=== PATIENT | male | born 1955 | race Caucasian/White ===

== ENCOUNTER 2025-04-29 10:13 | Emergency (ER) | payer MEDICARE, SELFPAY ==
--- NOTE | ~2025-04-29 | XR_ITS ---
Clinical Indication: Cough PA and lateral views of the chest: Comparison: 10/03/2018 Findings: There is patchy airspace disease extensively involving the right upper lobe, and probable m ild haziness at the bilateral lung bases.. There is fullness the right perihilar region. Cardiac silh ouette unremarkable otherwise. Bones and soft tissues are unremarkable. Impression: Findings suspicious for multifocal pneumonia, worst in the right upper lobe. Mild fullness the right hilar region could reflect lymphadenopathy or possibly mass. Contrast-enhance d chest CT should be strongly considered to further evaluate. Reviewed, dictated and finalized at location . Impression: Findings suspicious for multifocal pneumonia, worst in the right upper lobe. Mild fullness the right hilar region could reflect lymphadenopathy or possibly mass. Contrast-enhanced chest CT should be strongly considered to further evalu ate.
[2025-04-29 10:22] VITALS: BP 193/130; PULSE 101; RESP 22; TEMP 36.8; O2SAT 93
--- NOTE | 2025-04-29 10:23 | ED_ITS ---
HPI - URI/Sore Throat General Chief Complaint: Upper Respiratory Infection Stated Complaint: Trouble Brething/Cough Time Seen by Provider: 04/29/25 10:20 Source: patient and RN notes reviewed Mode of arrival: ambulatory Limitations: no limitations History of Present Illness HPI Narrative: 70-year-old male presents with concern of for shortness of breath for 1 year that is increasingly worsening. He reports his stamina is less than it used to be before he gets short of breath. Reports the cough since December. He reports a history of hypertension, but he does not take medication for it. MD elicited complaint: cough and other (Shortness of breath) Related Data Home Medications ?Medication ?Instructions ?Recorded ?Confirmed ?Last Taken ?Type No Home Medications 04/29/25 04/29/25 Unknown History Allergies Allergy/AdvReac Type Severity Reaction Status Date / Time No Known Allergies Allergy Verified 04/29/25 10:25 Review of Systems Review of Systems: CONSTITUTIONAL: Denies malaise, chills, sweats, or fever. EYES: Denies visual changes, redness, or discharge. ENT: Denies rhinorrhea, congestion, sinus pain, otalgia and sore throat. CARDIOVASCULAR: Denies chest pain, palpitations, or edema. RESPIRATORY: Reports cough, dyspnea. GASTROINTESTINAL: Denies abdominal pain, nausea, vomiting, diarrhea SKIN: Denies rash or itching. MUSCULOSKELETAL: Denies myalgia. NEUROLOGIC: Denies headache. All systems reviewed & are unremarkable except as noted in HPI and below PMFSH Family History Family History (Updated 10/02/18 @ 08:36 by DOCTOR UNKNOWN) Father Malignant neoplasm of prostate, Onset Age: 73 Social History Social History Smoking status: Former smoker Smoking end date: 11/20/75 Alcohol intake: current Comments At time of signature, agree with nursing past medical, surgical, social and family history. There is no relevant family history pertinent to the presenting complaint Exam Narrative: GENERAL: Well-appearing, well-nourished, and in no acute distress. HEAD: Normocephalic, atraumatic. EYES: PERRLA, sclera clear, and EOMI. ENT: Nares clear. Mucous membranes moist. NECK: Supple. No jugular venous distension. Carotids were easily palpable bilaterally. CHEST: No respiratory distress. Mild crackles in the bases, otherwise Clear to auscultation. No bony deformities, no asymmetry. Speaks in full sentences. HEART: Regular rate and rhythm. No murmur heard. Normal peripheral pulses. EXTREMITIES: Normal range of motion. No edema. Normal strength and sensation. SKIN: Warm, dry, no visible rash. NEURO: Alert and oriented x3. No focal deficits. Cranial nerves II through XII grossly intact PSYCH: Normal mood and affect Course Course Emergency Course: Patient is aware of diagnosis, understands and agrees to treatment plan. Anticipatory guidance given. Patient agrees to follow-up as directed and is aware of reasons to seek care at the emergency department. Portions of this record may have been created with voice recognition software Level of Care: [facility] Visit Vital Signs Vital signs: Reviewed. Transfer Transfered to: [place] Transportation: Other (private vehicle) Transfer rationale: Hypertension, abnormal EKG, shortness of breath, multifocal pneumonia Accepting physician: Minerva MDM - URI/Sore Throat MDM Narrative Medical decision making narrative: I evaluated this patient in the [facility]. History is obtained from patient who is an independent historian and physical exam was performed.? Available medical records were reviewed. ? Patient is non-toxic appearing and is in no distress. ? Differential diagnosis and treatment plan were discussed with the patient. Patient agrees with discussion and after shared medical decision making agrees w ith plan of care. All questions were answered to the patient's satisfaction. Patient is appropriate for outpatient treatment and follow-up. Lab Data Attestation: I reviewed the patient's lab results. Imaging Data My impression: Images reviewed, interpreted by radiologist, agree, see report. Radiologist's impression: Clinical Indication: Cough PA and lateral views of the chest: Comparison: 10/03/2018 Findings: There is patchy airspace disease extensively involving the right upper lobe, and probable mild haziness at the bilateral lung bases.. There is fullness the right perihilar region. Cardiac silhouette unremarkable otherwise. Bones and soft tissues are unremarkable. Impression: Findings suspicious for multifocal pneumonia, worst in the right upper lobe. Mild fullness the right hilar region could reflect lymphadenopathy or possibly mass. Contrast-enhanced chest CT should be strongly considered to further evaluate. ECG Data EKG #1: ECG completion date: 04/29/25 ECG completion time: 10:38 Interpretation: Rate 93, [place] interval 192, QRS duration 128, QT 491, QTC 542, possible left atrial enlargement, possible right ventricular conduction delay, possible left lateral [place], probably old EKG Interpretation: normal rate and sinus rhythm Critical Care Time Critical Care Time Critical Care Time: No Discharge Plan Discharge Clinical Impression: Multifocal pneumonia Patient Disposition: Acute Care Hospital Condition: Stable Patient Language: Turkmen Prescriptions: No Action No Home Medications Follow-up/Referrals: Jess Roque MD [Primary Care Provider] - Time of Disposition: 11:16
--- NOTE | 2025-04-29 10:28 | ECG_ITS ---
Test Date: 2025-04-29 12:12:24 Measurements Intervals [place] Rate: 90 P: 12 LA: 192 QRS: 6 QRSD: 129 T: -4 QT: 402 QTc: 492 Interpretive Statements SINUS RHYTHM BORDERLINE AV CONDUCTION DELAY RIGHT BUNDLE BRANCH BLOCK LEFT VENTRICULAR HYPERTROPHY POSSIBLE HIGH LATERAL MYOCARDIAL INFARCTION , PROBABLY OLD BASELINE ARTIFACT- I, II, AVR, AVL ABNORMAL ECG No previous ECG available for comparison Electronically Signed On 04-29-2025 12:49:19 CDT by Arsh Lord D.O.
== END 2025-04-29 11:20 | disposition short-term general hospital (02) ==
PROVIDERS: Emergency Provider Nurse Practitioner; PCP Family Medicine
DX: J18.9 Pneumonia, unspecified organism (principal); Z87.891 Personal history of nicotine dependence; I10 Essential (primary) hypertension
CPT/HCPCS: 71046; 93005; 99213; G0463

== ENCOUNTER 2025-04-29 11:42 | Inpatient (IN) | payer MEDICARE, SELFPAY ==
[2025-04-29] VITALS (15 sets, daily range): BP systolic 163–216; BP diastolic 94–118; PULSE 83–98; RESP 16–28; TEMP 36.1–36.7; O2SAT 88–97; BMI 37.8
--- NOTE | ~2025-04-29 | CT_ITS ---
EXAMINATION: CT diagnostic chest w con DATE: 04/29/2025 14:20 INDICATION: Perihilar mass. multifocal PNA TECHNIQUE: Computed tomography (CT) of the chest was performed with 100 mL Omnipaque-350 intravenous contrast. Additional 3D reconstructions utilizing coronal maximum intensity projection (MIP) were per formed. Automated exposure control and iterative reconstruction technique were employed. The dose-sonia gth product was 746.63 mGy-cm. COMPARISON: None FINDINGS: Lower lung and peripheral predominant groundglass opacities and irregular septal line thickening with associated honeycombing consistent with usual interstitial pneumonia (UIP) pattern chronic interstit ial lung disease. No suspicious pulmonary nodules or masses. No pleural effusion. Heart size is raven l. No pericardial effusion. There is enlargement of the central pulmonary arteries consistent with pu lmonary arterial hypertension and which accounts for the increased prominence of the asya on prior ch est radiograph. Thoracic aorta is normal in caliber with no dissection. Mild likely reactive mediasti nal lymphadenopathy, the largest right paratracheal lymph node measuring 1.3 cm in maximal short axis diameter. No other pathologically enlarged thoracic lymphadenopathy. Visualized upper abdomen is unr emarkable. Severe lower cervical and mild to moderate lower thoracic predominant spondylosis. Chronic appearing mild likely physiologic anterior wedging at T12. IMPRESSION: 1. UIP pattern chronic interstitial lung disease. 2. Enlargement of the central pulmonary arteries likely related to pulmonary arterial hypertension an d which accounts for the increased prominence of the asya on the prior chest radiograph. 2. Mildly likely reactive mediastinal lymphadenopathy. Reviewed, dictated and finalized at location [facility]. IMPRESSION: 1. UIP pattern chronic interstitial lung disease. 2. Enlargement of the central pulmonary arteries likely related to pulmonary ar terial hypertension and which accounts for the increased prominence of the asya on the prior chest radiograph. 2. Mildly likely reactive mediastinal lymphadenopathy.
--- NOTE | 2025-04-29 12:04 | ECG_ITS ---
Test Date: 2025-04-29 15:26:46 Measurements Intervals [place] Rate: 84 P: 20 ND: 218 QRS: 15 QRSD: 119 T: 9 QT: 413 QTc: 491 Interpretive Statements SINUS RHYTHM WITH FIRST DEGREE AV BLOCK INCOMPLETE RIGHT BUNDLE BRANCH BLOCK DELAYED PRECORDIAL R/S TRANSITION LEFT VENTRICULAR HYPERTROPHY MINIMAL Q WAVES- HIGH LATERAL LEADS BORDERLINE T WAVE ABNORMALITY- ANT/INF LEADS BORDERLINE ECG Compared to ECG 04/29/2025 12:12:24 First degree AV block now present I Electronically Signed On 04-29-2025 16:12:19 CDT by Arsh Lord D.O.
[2025-04-29 12:28] LABS: Basophils Absolute Auto 0.1 K/mm3 (0.0-0.1); Basophils Percent Auto 0.5 % (0.2-1.2); Eosinophils Absolute Auto 0.3 K/mm3 (0-0.3); Eosinophils Percent Auto 2.6 % (0-4.4); Hematocrit 49.9 % (42.0-52.0); Hemoglobin 16.8 g/dL (14.0-18.0); Immature Granulocyte Absolute 0.05 K/mm3 (0.00-0.031); Immature Granulocyte Percent A 0.5 % (0-0.5); Lymphocytes Absolute Auto 1.72 K/mm3 (0.9-3.2); Lymphocytes Percent Auto 17.3 % (18.3-44.2); Mean Corpuscular HGB Conc 33.7 g/dl (32-36); Mean Corpuscular Hemoglobin 31.2 pg (26-34); Mean Corpuscular Volume 92.6 fl (80-100); Mean Platelet Volume 10.2 fl (7.4-10.4); Monocytes Absolute Auto 0.9 K/mm3 (0.1-0.6); Monocytes Percent Auto 8.5 % (2.6-8.5); Neutrophils Percent Auto 70.6 % (45.5-73.1); Platelet Count Result 210 k/mm3 (150-375); Red Blood Count 5.39 M/mm3 (4.6-6.20); Red Cell Distribution Width 13.3 % (11.5-14.5)
[2025-04-29 12:29] LABS: Fractional Inspired Oxygen 28 %; HCO3 VBG 21.5 mEq/l (24.0-30.0); PCO2 VBG 32.8 mmHg (42.0-48.0); PO2 VBG 82.2 mmHg (35.0-45.0)
[2025-04-29 12:33] LABS: pH VBG 7.434 (7.300-7.400)
[2025-04-29 12:34] LABS: Device NASAL CANNULA
[2025-04-29 12:38] LABS: INR 1.1; Prothrombin Time 13.8 Seconds (11.1-14.7)
[2025-04-29 12:48] LABS: D Dimer 0.38 ug/mL (<0.48)
[2025-04-29 12:55] LABS: Troponin I < 0.012 ng/mL (0.000-0.034)
--- OUTSIDE RECORDS SUMMARY | 2025-04-29 12:57 | XMS_ITS | Referral Summary ---
Author Organization [facility] [place] [address] Address [address] [place] [address] Care Team Providers Care Electric Locomotive Firer/Fireman Name Role Phone Edgar Ward MD Primary Care Provider [phone]- [phone] Allergies No known active allergies Social History Tobacco Use Types Packs/Day Years Used Date Smoking Tobacco: Never Assessed Personal Safety Answer Date Recorded Getting School Help Needed Not on file 02/03 Sex and Gender Information Value Date Recorded Sex Assigned at Not on file Legal Sex Male 2:39 PM CDT Gender Identity Not on file Sexual Orientation Not on file Last Filed Vital Signs Vital Sign Reading Time Taken Comments Blood Pressure - - Pulse - - Temperature - - Respiratory Rate - - Oxygen Saturation - - Inhaled Oxygen Concentration - - Weight 140.6 kg (310 lb) 05/17/2018 11:33 AM CDT Height 190.5 cm (6' 3) 05/17/2018 11:33 AM CDT Body Mass Index 38.75 05/17/2018 11:33 AM CDT Plan of Treatment Not on file Insurance [facility] Care Teams Electric Locomotive Firer/Fireman Relationship Specialty Start Date End Date Edgar Ward MD [address] [place] [address] PCP - General Family Medicine 05/03/18
--- OUTSIDE RECORDS SUMMARY | 2025-04-29 12:57 | XMS_ITS | Clinical Summary ---
Author Organization [facility] [place] [address] Address [address] [place] [address] Care Team Providers Care Supervisor Color Making Name Role Phone Edgar Ward MD Primary Care Provider [phone]- [phone] Allergies No known active allergies Social History [...] Plan of Treatment Not on file Insurance [employer] [facility] Care Teams Supervisor Color Making Relationship Specialty Start Date End Date Edgar Ward MD [address] [place] [address] PCP - General Family Medicine 05/03/18
[2025-04-29 13:05] LABS: Influenza A QL RT-PCR Negative (Negative); Influenza B QL RT-PCR Negative (Negative); RSV RNA, RT-PCR Negative (Negative); SARS-CoV-2 RNA PCR Negative (Negative)
--- NOTE | 2025-04-29 13:07 | ED_ITS ---
HPI - General Adult General Chief complaint: Shortness of Breath/Dyspnea Stated complaint: sob Time Seen by Provider: 04/29/25 11:53 History of Present Illness HPI narrative: This is a 70-year-old male with history hypertension not medications presenting for progressive dyspnea. Patient's 2 weeks he has finding it hard 100 breathe. He denies fevers chills productive cough, nausea vomiting diarrhea or lower extremity edema. He has had orthopnea. Patient has not seen primary care physician 6 years she is post be on medication hypertension but does not currently take any. Hew as seen in urgent care this morning for to the ED after a saw possible pneumonia on his chest x-ray Related Data Home Medications ?Medication ?Instructions ?Recorded ?Confirmed ?Last Taken ?Type No Home Medications 04/29/25 04/29/25 Unknown History Allergies Allergy/AdvReac Type Severity Reaction Status Date / Time No Known Allergies Allergy Verified 04/29/25 10:25 [facility] Family History Family History Father Malignant neoplasm of prostate, Onset Age: 73 Social History Social History Smoking status: Former smoker Smoking end date: 11/20/75 Alcohol intake: current Exam 2 Narrative: APPEARANCE: No apparent distress. Head: atraumatic. EYES: EOMI, NOSE: Atraumatic NECK: Trachea midline RESPIRATORY: Hypoxic on room air, CARDIOVASCULAR: RRR, no peripheral edema ABDOMINAL: Non-distended soft nontender MUSCULOSKELETAl: No obvious deformities NEURO: Alert. Moving 4/4 extremities SKIN:: Warm, dry. Normal color PSYCHIATRIC: Normal affect Course Vital Signs Vital signs: Vital Signs Temperature 97.4 F L 04/29/25 11:48 Pulse Rate 98 04/29/25 11:48 Respiratory Rate 24 H 04/29/25 11:48 Blood Pressure 216/118 H 04/29/25 11:48 Pulse Oximetry 88 L 04/29/25 11:48 Oxygen Delivery Room Air 04/29/25 11:48 Temperature 97.4 F L 04/29/25 11:48 Pulse Rate 84 04/29/25 15:31 Respiratory Rate 18 04/29/25 15:31 Blood Pressure 165/106 H 04/29/25 15:31 Pulse Oximetry 97 04/29/25 15:31 Oxygen Delivery Nasal Cannula 04/29/25 11:53 Oxygen Flow Rate 2 04/29/25 11:53 Medical Decision Making MDM Narrative Medical decision making narrative: -Course: 70-year-old male presenting with progressive dyspnea. On arrival is hypertensive at 216/118. He is hypoxic at 8 on room air and placed on 2 L nasal cannula improved to 96%. Workup significant for a white blood cell count of 10. Hemoglobin normal. VBG within expected limits. Comp panel unremarkable. Initial troponin undetectable.. BMP within normal limits. D-dimer 0.038. Viral swabs negative. Chest x-ray showed multifocal pneumonia. CT diagnostic chest showed Usual interstitial pneumonia/chronic interstitial lung disease. and possibly pulmonary hypertension. No echocardiogram /right heart cath in our system. Patient be started on ceftriaxone and doxycycline. Given 20 mg of IV asix. Patient be admitted the hospital for hypoxic respiratory failure. -DDX includes but is not limited to: Pneumonia, congestive heart neoplasm, sepsis hypertensive urgency Independent EKG interpretation: Rhythm [sinus], Rate [84], [place] -[normal], [place] -[218], QRS [narrow], QTC [normal], T waves -[negative for concerning inversions], ST Segments - [Negative for concerning elevations] Final interpretations: Sinus rhythm first-degree block and intraventricular conduction delay. Vital Signs Vital Signs: Vital Signs Temperature 97.4 F L 04/29/25 11:48 Pulse Rate 98 04/29/25 11:48 Respiratory Rate 24 H 04/29/25 11:48 Blood Pressure 216/118 H 04/29/25 11:48 Pulse Oximetry 88 L 04/29/25 11:48 Oxygen Delivery Room Air 04/29/25 11:48 Temperature 97.4 F L 04/29/25 11:48 Pulse Rate 84 04/29/25 15:31 Respiratory Rate 18 04/29/25 15:31 Blood Pressure 165/106 H 04/29/25 15:31 Pulse Oximetry 97 04/29/25 15:31 Oxygen Delivery Nasal Cannula 04/29/25 11:53 Oxygen Flow Rate 2 04/29/25 11:53 Lab Data 04/29/25 12:22 04/29/25 12:22 Labs: Lab Results 04/29/25 04/29/25 04/29/25 Range/Units 12:20 12:22 14:50 WBC 10.0 (4.5-10.0) K/mm3 RBC 5.39 (4.6-6.20) M/mm3 Hgb 16.8 (14.0-18.0) g/dL Hct 49.9 (42.0-52.0) % MCV 92.6 (80-100) fl MCH 31.2 (26-34) pg MCHC 33.7 (32-36) g/dl RDW 13.3 (11.5-14.5) % Plt Count 210 (150-375) k/mm3 MPV 10.2 (7.4-10.4) fl Immature Gran % (Auto) 0.5 (0-0.5) % Neut % (Auto) 70.6 (45.5-73.1) % Lymph % (Auto) 17.3 L (18.3-44.2) % [place] % (Auto) 8.5 (2.6-8.5) % Eos % (Auto) 2.6 (0-4.4) % Baso % (Auto) 0.5 (0.2-1.2) % Lymph # (Auto) 1.72 (0.9-3.2) K/mm3 [place] # (Auto) 0.9 H (0.1-0.6) K/mm3 Eos # (Auto) 0.3 (0-0.3) K/mm3 Baso # (Auto) 0.1 (0.0-0.1) K/mm3 Abs Immat Gran (auto) 0.05 H (0.00-0.031) K/mm3 Absolute Neuts (auto) 7.0 H (1.3-6.7) K/mm3 Absolute Nucleated RBC 0.000 (0.0-0.012) K/mm3 Nucleated RBC % 0.0 (0.0-0.2) % PT 13.8 (11.1-14.7) Seconds INR 1.1 APTT 27.0 (22.3-36.8) Seconds D-Dimer 0.38 (<0.48) ug/mL Sodium 135 L (137-145) mmol/L Potassium 3.9 (3.4-5.0) mmol/L Chloride 106 (98-107) mmol/L Carbon Dioxide 17 L (22-30) mmol/L Anion Gap 12 (4-12) mmol/L BUN 21 H (9-20) mg/dL Creatinine 0.86 (0.7-1.3) mg/dL Estim Creat Clear Calc 103 ml/min Estimated GFR > 60 (59 - ) Glucose 111 H (65-110) mg/dL Calcium 9.3 (8.4-10.2) mg/dL Phosphorus 4.0 (2.5-4.5) mg/dL Magnesium 2.0 (1.6-2.3) mg/dL Total Bilirubin 0.8 (0.2-1.3) mg/dL AST 31 (17-59) U/L ALT 19 (6-50) U/L Alkaline Phosphatase 142 H (38-126) U/L Troponin I < 0.012 Cancelled (0.000-0.034) ng/mL NT-Pro-B Natriuret Pep 283 H (19.9-100) pg/mL Total Protein 7.9 (6.3-8.2) g/dL Albumin 4.3 (3.5-5.1) g/dL Lipase 80 (23-300) U/L Urine Color Yellow (Yellow) Urine Appearance Clear (Clear) Urine pH 5.0 (5.0-9.0) Ur Specific [place] > 1.045 H (1.001-1.035) Urine Protein Negative (Negative) mg/dL Urine Glucose (UA) Negative (Negative) mg/dL Urine Ketones Negative (Negative) mg/dL Ur Blood (Man) Negative (Negative) Urine Nitrate Negative (Negative) Urine Bilirubin Negative (Negative) Urine Urobilinogen 0.2 (<2.0) mg/dL Leukocyte Esterase Rfl Negative (Negative) LC/UL Influenza A (RT-PCR) Negative (Negative) Influenza B (RT-PCR) Negative (Negative) RSV (RT-PCR) Negative (Negative) SARS-CoV-2 RNA (RT-PCR) Negative (Negative) 04/29/25 Range/Units 15:24 WBC (4.5-10.0) K/mm3 RBC (4.6-6.20) M/mm3 Hgb (14.0-18.0) g/dL Hct (42.0-52.0) % MCV (80-100) fl MCH (26-34) pg MCHC (32-36) g/dl RDW (11.5-14.5) % Plt Count (150-375) k/mm3 MPV (7.4-10.4) fl Immature Gran % (Auto) (0-0.5) % Neut % (Auto) (45.5-73.1) % Lymph % (Auto) (18.3-44.2) % [place] % (Auto) (2.6-8.5) % Eos % (Auto) (0-4.4) % Baso % (Auto) (0.2-1.2) % Lymph # (Auto) (0.9-3.2) K/mm3 [place] # (Auto) (0.1-0.6) K/mm3 Eos # (Auto) (0-0.3) K/mm3 Baso # (Auto) (0.0-0.1) K/mm3 Abs Immat Gran (auto) (0.00-0.031) K/mm3 Absolute Neuts (auto) (1.3-6.7) K/mm3 Absolute Nucleated RBC (0.0-0.012) K/mm3 Nucleated RBC % (0.0-0.2) % PT (11.1-14.7) Seconds INR APTT (22.3-36.8) Seconds D-Dimer (<0.48) ug/mL Sodium (137-145) mmol/L Potassium (3.4-5.0) mmol/L Chloride (98-107) mmol/L Carbon Dioxide (22-30) mmol/L Anion Gap (4-12) mmol/L BUN (9-20) mg/dL Creatinine (0.7-1.3) mg/dL Estim Creat Clear Calc ml/min Estimated GFR (59 - ) Glucose (65-110) mg/dL Calcium (8.4-10.2) mg/dL Phosphorus (2.5-4.5) mg/dL Magnesium (1.6-2.3) mg/dL Total Bilirubin (0.2-1.3) mg/dL AST (17-59) U/L ALT (6-50) U/L Alkaline Phosphatase (38-126) U/L Troponin I < 0.012 (0.000-0.034) ng/mL NT-Pro-B Natriuret Pep (19.9-100) pg/mL Total Protein (6.3-8.2) g/dL Albumin (3.5-5.1) g/dL Lipase (23-300) U/L Urine Color (Yellow) Urine Appearance (Clear) Urine pH (5.0-9.0) Ur Specific [place] (1.001-1.035) Urine Protein (Negative) mg/dL Urine Glucose (UA) (Negative) mg/dL Urine Ketones (Negative) mg/dL Ur Blood (Man) (Negative) Urine Nitrate (Negative) Urine Bilirubin (Negative) Urine Urobilinogen (<2.0) mg/dL Leukocyte Esterase Rfl (Negative) LC/UL Influenza A (RT-PCR) (Negative) Influenza B (RT-PCR) (Negative) RSV (RT-PCR) (Negative) SARS-CoV-2 RNA (RT-PCR) (Negative) ABG Data ABG results: 04/29/25 12:22 VBG pH 7.434 H* VBG pCO2 32.8 L VBG pO2 82.2 H VBG HCO3 21.5 L O2 Delivery Device Nasal cannula O2 Liters/Min 2.0 FiO2 28 Discharge Plan Discharge Clinical Impression: Interstitial lung disease, Hypoxic respiratory failure Patient Disposition: Still a Patient Condition: Stable Patient Language: South African Prescriptions: No Action No Home Medications Follow-up/Referrals: Jess Roque MD [Primary Care Provider] -
[2025-04-29 13:57] LABS: Alanine Aminotransferase 19 U/L (6-50); Albumin Level 4.3 g/dL (3.5-5.1); Alkaline Phosphatase 142 U/L (38-126); Anion Gap 12 mmol/L (4-12); Aspartate Amino Transferase 31 U/L (17-59); Bilirubin,Total 0.8 mg/dL (0.2-1.3); Blood Urea Nitrogen 21 mg/dL (9-20); Calcium 9.3 mg/dL (8.4-10.2); Carbon Dioxide 17 mmol/L (22-30); Chloride 106 mmol/L (98-107); Estimated CRCL calculation 103 ml/min; Estimated Glomerular Filt Rate > 60; Glucose 111 mg/dL (65-110); Lipase 80 U/L (23-300); Potassium 3.9 mmol/L (3.4-5.0); Sodium 135 mmol/L (137-145); Total Protein 7.9 g/dL (6.3-8.2)
[2025-04-29 14:06] LABS: NT Pro B Type Natriuretic Pept 283 pg/mL (19.9-100)
[2025-04-29 15:17] LABS: Add Urine Microscopic? NO; Appearance Urine Clear (Clear); Bilirubin Urine Negative (Negative); Blood Urine Negative (Negative); Color Urine Yellow (Yellow); Glucose Urine UA Negative (Negative); Ketones Urine Negative (Negative); Leukocyte Esterase Ur Negative LEU/UL (Negative); Nitrate Urine Negative (Negative); Protein Urine Negative (Negative); Specific Grav Ur > 1.045 (1.001-1.035); Urobilinogen Urine 0.2 mg/dL (<2.0)
[2025-04-29 15:56] LABS: Troponin I < 0.012 ng/mL (0.000-0.034)
[2025-04-29] MEDS: FUROSEMIDE INJ 40 MG/4 ML VIAL 20 MG IV PUSH (16:40)
[2025-04-29] MEDS: DOXYCYCLINE 100 MG/NS 100 ML 100 MG/100 ML BAG IVPB (16:40)
--- NOTE | 2025-04-29 17:47 | ADMGEN ---
This patient, Jayson Jennings, was admitted to [facility] Surg Room 328-01. Patient/family oriented to hospital policies and general routines including ID bracelet, bed and alarms, visiting hours, pain management, procedures, bathroom and other care routines, personal items, smoking policy, room service/diet, and visiting hours. Information on how to activate the Rapid Response Team has been discussed. Patient/Family are encouraged to report perceived risks to care and to ask questions if they do not understand what they are told or what they should do.
--- NOTE | 2025-04-29 18:28 | P.HP_ITS ---
H&P: HPI History of Present Illness Date/Time: 04/29/25 23:28 Chief Complaint: Difficulty breathing, UIP, CHF vs Pulmonary HTN, Hypertensive Urgency Narrative: This is a 70 year old male patient who is admitted to the hospital with acute hypoxic respiratory failure and severely elevated blood pressure. Imaging completed in ER also concerning for Usual Interstitial Pneumonia (UIP), interstitial lung disease, possible CHF and likely pulmonary hypertension. Laboratory findings include a white blood cell count of 10, decreased carbon dioxide at 17 with venous pH mildly alkalotic at 7.434 with pCO2 low at 32.8. Patient is tachypneic due to respiratory findings primarily. No explanation for metabolic acidosis unless purely compensatory. ProBNP 283. Patient was started on Rocephin and doxycycline in ER which will be continued. He also got a one time dose of furosemide in ER. The patient reports a chronic cough began several months ago and has progressively worsened, particularly over the last two weeks. The increasing severity prompted the patient to seek medical attention, as symptoms were not resolving and it just got so bad I realized it was never going to go away. The cough is primarily felt in the upper part of the lungs and worsens with exertion. The patient denies chest pain or heart attack symptoms. Wheezing has been present for the past couple of weeks. There is no known history of diabetes. The patient has a known history of high blood pressure previously identified but has not been on antihypertensive medication and does not have regular follow-up with a physician. Patient reports he has seen a doctor only once six years ago. The patient reports no allergies. Past surgical history includes finger surgery (due to a table saw injury) and bilateral foot surgeries for degenerative joint disease, which allows the patient to walk without pain. The patient drinks alcohol regularly (two cocktails nightly, each containing two shots) and uses gummies at night to aid sleep. The patient denies a history of withdrawal symptoms even going multiple days without drinking. Review of Systems Review of Systems: All systems reviewed & are unremarkable except as noted in HPI and below PMFSH Past Medical History Medical History Essential (primary) hypertension Family History Family History Father Malignant neoplasm of prostate, Onset Age: 73 Social History Social History (Reviewed 04/30/25 @ 00:22 by GORGE Ramirez Smoking status: Former smoker Tobacco type: cigarettes Smoking end date: 07/21/77 Alcohol intake: current Drinks per week: 14 Substance use: current Other substance usage details: THC Gummies Last use: 04/28/25 Do You Feel Safe in your Home?: Yes Lack of Transportation: No Lack of Food: Never True Current Housing: I Have Housing Concerned About Future Housing: No Difficulty Paying Gas/Electric Bills: No Difficulty Paying for Meds: No Currently Unemployed: No Education: Master's Degree or Higher Difficulty w/ Childcare or Family Care: No Spiritual care concerns: No Meds Home Medications and Allergies Home Medications ?Medication ?Instructions ?Recorded ?Confirmed ?Type No Home Medications 04/29/25 04/29/25 History Allergies Allergy/AdvReac Type Severity Reaction Status Date / Time No Known Allergies Allergy Verified 04/29/25 10:25 Vital Signs Vital Signs - 24 hr 04/29/25 11:48 04/29/25 11:53 04/29/25 12:00 Temperature 36.3 C L Pulse Rate 98 91 Respiratory Rate 24 H 28 H Blood Pressure 216/118 H 207/111 H Pulse Oximetry 88 L 96 96 Oxygen Delivery Room Air Nasal Cannula Oxygen Flow Rate 2 04/29/25 12:30 04/29/25 12:45 04/29/25 15:31 Temperature Pulse Rate 89 88 84 Respiratory Rate 22 H 22 H 18 Blood Pressure 189/104 H 187/104 H 165/106 H Pulse Oximetry 96 96 97 Oxygen Delivery Oxygen Flow Rate 04/29/25 17:37 04/29/25 17:46 Temperature Pulse Rate 83 Respiratory Rate 16 Blood Pressure Pulse Oximetry 97 97 Oxygen Delivery Nasal Cannula Oxygen Flow Rate 2 Exam Narrative: GENERAL: Appears stated age, tachypnea noted with mild respiratory distress HEAD: Normocephalic, atraumatic. ENT:? Mucous membranes moist. CHEST: Diminished lung sounds with mild end expiratory wheeze noted anteriorly. No obvious rales or rhonchi HEART: Regular rate and rhythm. ? Normal peripheral pulses. ABDOMEN: Soft, nontender, nondistended. EXTREMITIES: Normal range of motion. No peripheral edema. SKIN: Warm dry normal color NEURO: Alert and oriented x3. PSYCH: Normal mood and affect H&P: Results Labs Labs: Short CBC 04/29/25 Range/Units 12:22 WBC 10.0 (4.5-10.0) K/mm3 Hgb 16.8 (14.0-18.0) g/dL Hct 49.9 (42.0-52.0) % Plt Count 210 (150-375) k/mm3 BMP 04/29/25 12:22 Sodium 135 L Potassium 3.9 Chloride 106 Carbon Dioxide 17 L BUN 21 H Creatinine 0.86 Glucose 111 H Calcium 9.3 Cardiac Enzymes 04/29/25 04/29/25 04/29/25 Range/Units 12:20 12:22 15:24 Troponin I < 0.012 Cancelled < 0.012 (0.000-0.034) ng/mL Liver Function 04/29/25 Range/Units 12:22 Total Bilirubin 0.8 (0.2-1.3) mg/dL AST 31 (17-59) U/L ALT 19 (6-50) U/L Alkaline Phosphatase 142 H (38-126) U/L Albumin 4.3 (3.5-5.1) g/dL Urine 04/29/25 Range/Units 14:50 Urine Color Yellow (Yellow) Urine Appearance Clear (Clear) Urine pH 5.0 (5.0-9.0) Ur Specific [place] > 1.045 H (1.001-1.035) Urine Protein Negative (Negative) mg/dL Urine Glucose (UA) Negative (Negative) mg/dL Pulse Oximetry SpO2 results: 88% on room air, 96-97% on 2 LPM Nasal Cannula Attestation: I personally reviewed and interpreted this pulse oximetry as follows: Interpretation: Patient continues to require supplemental oxygenation ECG Attestation: I personally reviewed and interpreted this ECG as follows: ECG completion date: 04/29/25 ECG completion time: 15:26 Prior ECG tracings: available for review Interpretation: Sinus rhythm with first degree block, rate of 84, MS 218, QRSd 119, QTC 491, QRS axis 15, No STEMI, LVH, borderline right bundle branch block Imaging Chest x-ray: Radiologist's impression: Clinical Indication: Cough PA and lateral views of the chest: Comparison: 10/03/2018 Findings: There is patchy airspace disease extensively involving the right upper lobe, and probable mild haziness at the bilateral lung bases.. There is fullness the right perihilar region. Cardiac silhouette unremarkable otherwise. Bones and soft tissues are unremarkable. Impression: Findings suspicious for multifocal pneumonia, worst in the right upper lobe. Mild fullness the right hilar region could reflect lymphadenopathy or possibly mass. Contrast-enhanced chest CT should be strongly considered to further evaluate. Reviewed, dictated and finalized at [facility]. CT scan - chest: Radiologist's impression: EXAMINATION: CT diagnostic chest w con DATE: 04/29/2025 14:20 INDICATION: Perihilar mass. multifocal PNA TECHNIQUE: Computed tomography (CT) of the chest was performed with 100 mL Omnipaque-350 intravenous contrast. Additional 3D reconstructions utilizing coronal maximum intensity projection (MIP) were performed. Automated exposure control and iterative reconstruction technique were employed. The dose-length product was 746.63 mGy-cm. COMPARISON: None FINDINGS: Lower lung and peripheral predominant groundglass opacities and irregular septal line thickening with associated honeycombing consistent with usual interstitial pneumonia (UIP) pattern chronic interstitial lung disease. No suspicious pulmonary nodules or masses. No pleural effusion. Heart size is normal. No pericardial effusion. There is enlargement of the central pulmonary arteries consistent with pulmonary arterial hypertension and which accounts for the increased prominence of the asya on prior chest radiograph. Thoracic aorta is normal in caliber with no dissection. Mild likely reactive mediastinal lymphadenopathy, the largest right paratracheal lymph node measuring 1.3 cm in maximal short axis diameter. No other pathologically enlarged thoracic lymphadenopathy. Visualized upper abdomen is unremarkable. Severe lower cervical and mild to moderate lower thoracic predominant spondylosis. Chronic appearing mild likely physiologic anterior wedging at T12. IMPRESSION: 1. UIP pattern chronic interstitial lung disease. 2. Enlargement of the central pulmonary arteries likely related to pulmonary arterial hypertension and which accounts for the increased prominence of the asya on the prior chest radiograph. 2. Mildly likely reactive mediastinal lymphadenopathy. Reviewed, dictated and finalized at location [facility]. Assessment and Plan Assessment and plan (1) Hypertensive urgency: Code(s): I16.0 - Hypertensive urgency Status: Acute Assessment and Plan: -Very elevated blood pressures on ER presentation -Mild temporary improvement with a dose of IV hydralazine upon admit to the floor -Telemetry admit with Q4H vital signs -Likely pulmonary HTN and/or CHF development -Apply 1 inch nitro paste every 6 hours and start oral losartan -Avoided ARTHUR inhibitor due to already present chronic cough for several months -PRN hydralazine -Echocardiogram ordered -Troponin x2 negative -BNP only 283 (2) Hypoxic respiratory failure: Code(s): J96.91 - Respiratory failure, unspecified with hypoxia Status: Acute Assessment and Plan: -Likely multifactorial including interstitial lung disease with UIP, likley pulmonary HTN and possible new onset CHF -IV antibiotics started in ER and will be continued -Oxygen per nasal cannula -VBG suggestive of respiratory alkalosis with metabolic compensation -End expiratory wheezes noted anteriorly -IV solumedrol 40 mg Q8H to start -Duoneb x1 now and Q6HRT for now -Nitro paste for HTN urgency/CHF treatment -Losartan ordered for HTN -ApneaLink order placed to screen for HUMBERTO/nocturnal oxygen needs -Pulmonary consult requested, appreciate recommendations (3) Interstitial lung disease: Code(s): J84.9 - Interstitial pulmonary disease, unspecified Status: Acute Assessment and Plan: -See above (4) UIP (usual interstitial pneumonitis): Code(s): J84.112 - Idiopathic pulmonary fibrosis Status: Acute Assessment and Plan: -See above (5) Pulmonary hypertension: Code(s): I27.20 - Pulmonary hypertension, unspecified Status: Suspected Assessment and Plan: -Suspected based on imaging, see above (6) New onset of congestive heart failure: Code(s): I50.9 - Heart failure, unspecified Status: Suspected Assessment and Plan: -Suspected based on chronic worsening cough, CT imaging, Chronic HTN hx and worsening over months, see above Quality VTE Prophylaxis VTE prophylaxis: pharmacologic ordered Hospitalist MIPS Advance Care Plan I have confirmed that the patient's Advanced Care Plan is present, code status is documented, or surrogate decision maker is listed in patient medical record.: Yes Medication Reconciliation I have utilized all available resources to obtain, update and review the patients current medications (includes all prescriptions, OTC, herbals, cannabis, and nutritional supplements).: Yes
[2025-04-29] MEDS: hydrALAZINE HCL 20 MG/ML VIAL 10 MG IV PUSH (18:38)
[2025-04-29] MEDS: ENOXAPARIN 40 MG/0.4 ML SYRINGE SUB-Q (20:33)
[2025-04-29] MEDS: LOSARTAN POTASSIUM 50 MG TABLET PO (23:27)
[2025-04-29] MEDS: methylPREDNISolone SOD SUCC 40 MG VIAL IV PUSH (23:27)
[2025-04-29] MEDS: NITROGLYCERIN OINTMENT 1 INCH DOSE TRANSDERM (23:28)
[2025-04-29] MEDS: IPRATROPIUM 0.5 MG/ALBUTEROL SULFATE 2.5 MG AMPUL.NEB 3 ML INHALATION (23:40)
[2025-04-30] VITALS (15 sets, daily range): BP systolic 150–210; BP diastolic 70–109; PULSE 90–115; RESP 14–18; TEMP 36.1–36.4; O2SAT 91–95
--- NOTE | 2025-04-30 | ECHO_ITS ---
Patient Info Name: Jayson Jennings Age: 70 years : 1955 Gender: Male Ht: 75 in Wt: 302 lbs BSA: 2.74 m2 HR: 101 bpm BP: 172 / 93 mmHg Technical Quality: Fair Exam Date: 04/30/2025 7:57 AM Patient Status: I Admit Date: 04/29/2025 Exam Type: CA echo dop color flow w con Complete two-dimensional, color flow and Doppler transthoracic echocardiogram is performed with contrast to opacify the left ventricle and to improve the deliniation of the left ventricle endocardial borders. Staff Referring Physician: Edgar Boyd Roller Coaster Engineer: Dianne Blair Attending Provider: Kesha Monteiro Contrast/Agitated Saline Contrast/Ag. Saline: Definity Amount: 2.00 ml Existing IV Access: Yes Summary 1. Definity contrast administered improved wall motion interpretation. 2. Left ventricular chamber dimension is normal. 3. Left ventricular systolic function is normal, estimated at 60-65. 4. There is mild concentric increased left ventricular wall thickness. 5. The left ventricular diastolic function is indeterminate. 6. Tissue doppler E/e' was not measured. 7. There is mild aortic valve sclerosis. 8. There is trace tricuspid valve regurgitation. Left Ventricle Definity contrast administered improved wall motion interpretation. Left ventricular chamber dimension is normal. Left ventricular systolic function is normal, estimated at 60-65. There is mild concentric increased left ventricular wall thickness. The left ventricular diastolic function is indeterminate. Tissue doppler E/e' was not measured. Right Ventricle Right ventricular chamber dimension is normal. Right ventricular systolic function is normal. Left Atria Left atrial chamber dimension is normal. Right Atria Right atrial chamber dimension is normal. Aortic Valve The aortic valve is trileaflet. There is mild aortic valve sclerosis. There is no aortic valve stenosis. There is no aortic valve regurgitation. Pulmonic Valve There is no pulmonic regurgitation. Mitral Valve There is no mitral valve stenosis. There is no mitral valve regurgitation. Tricuspid Valve There is trace tricuspid valve regurgitation. RVSP is not measured due to an inadequate TR jet. Pericardium/Pleural There is no pericardial effusion. Inferior Vena Cava Normal inferior vena cava with >50% collapse upon inspiration consistent with normal right atrial pressure, 5 mmHg. Aorta The aortic root size at the sinus of Valsalva is normal. Left Ventricular Outflow Tract Name Value Normal LVOT 2D LVOT Diameter 1.9 cm LVOT Doppler LVOT Peak Velocity 131 cm/s LVOT Peak Gradient 7 mmHg LVOT Mean Gradient 4 mmHg LVOT VTI 22 cm LVOT VTI/AV VTI Ratio 0.7 LVOT Stroke Volume 62 ml LVOT CO 6.1 l/min LVOT CI 2.2 l/min/m2 Pulmonic Valve Name Value Normal PV Doppler PV Peak Velocity 228 cm/s PV Peak Gradient 21 mmHg Tricuspid Valve Name Value Normal Estimated PAP/RSVP RA Pressure 5 mmHg <=5 TV Annular TDI TV Lateral Sondra s' Velocity 22.0 cm/s >=9.5 Aortic Valve Name Value Normal AV Doppler AV Peak Velocity 175 cm/s AV Peak Gradient 12 mmHg AV Mean Gradient 7 mmHg AV VTI 30 cm AV Area (Cont Eq VTI) 2.1 cm2 >=3.0 AV Area (Cont Eq Mark) 2.2 cm2 AV DI (Mark) 0.75 AV Regurgitation 2D LVOT Area 2.9 cm2 Ventricles Name Value Normal LV Dimensions 2D/MM IVS Diastolic Thickness (2D) 1.2 cm 0.6-1.0 LVID Diastole (2D) 5.5 cm 4.2-5.8 LVIW Diastolic Thickness (2D) 1.1 cm 0.6-1.0 LVID Systole (2D) 3.5 cm 2.5-4.0 LVOT Diameter 1.9 cm LV Mass (2D Cubed) 254.04 g 88.00-224.00 LV Mass Index (2D Cubed) 93 g/m2 49-115 Relative Wall Thickness (2D) 0.39 <=0.42 LV Fractional Shortening/Ejection Fraction 2D/MM LV Fractional Shortening (2D) 37 % 25-43 LV EF (2D Teichholz) 66 % LV Diastolic Volume (4C MOD) 146 ml LV EF (4C MOD) 67 % LV Diastolic Volume (2C MOD) 156 ml LV EF (2C MOD) 64 % LV Diastolic Volume (BP MOD) 153 ml 62-150 LV Diastolic Volume Index (BP MOD) 56 ml/m2 34-74 LV Systolic Volume (BP MOD) 54 ml 21-61 LV Systolic Volume Index (BP MOD) 20 ml/m2 11-31 LV EF (BP MOD) 64 % 52-72 LV Diastolic Length (4C) 9.8 cm LV Systolic Length (4C) 7.7 cm LV Stroke Volume (4C MOD) 98 ml Atria Name Value Normal LA Dimensions LA Volume (4C A-L) 61 ml LA Volume (BP A-L) 59 ml RA Dimensions RA Systolic [place] Length (4C) 7.1 cm 2.1-2.7 RA Area (4C) 18.9 cm2 <=18.0 Report Signatures
[2025-04-30] MEDS: hydrALAZINE HCL 20 MG/ML VIAL 10 MG IV PUSH (01:19)
[2025-04-30] MEDS: IPRATROPIUM 0.5 MG/ALBUTEROL SULFATE 2.5 MG AMPUL.NEB 3 ML INHALATION ×3 (02:29→20:49)
[2025-04-30] MEDS: DOXYCYCLINE 100 MG/NS 100 ML 100 MG/100 ML BAG IVPB ×2 (05:36→17:53)
[2025-04-30] MEDS: NITROGLYCERIN OINTMENT 1 INCH DOSE TRANSDERM ×3 (05:36→17:53)
[2025-04-30] MEDS: methylPREDNISolone SOD SUCC 40 MG VIAL IV PUSH (05:36)
[2025-04-30 05:45] LABS: Basophils Percent Auto 0.2 % (0.2-1.2); Hemoglobin 16.7 g/dL (14.0-18.0); Immature Granulocyte Absolute 0.05 K/mm3 (0.00-0.031); Immature Granulocyte Percent A 0.6 % (0-0.5); Lymphocytes Absolute Auto 0.64 K/mm3 (0.9-3.2); Lymphocytes Percent Auto 7.6 % (18.3-44.2); Mean Corpuscular HGB Conc 33.4 g/dl (32-36); Mean Corpuscular Hemoglobin 31.2 pg (26-34); Mean Corpuscular Volume 93.3 fl (80-100); Mean Platelet Volume 9.8 fl (7.4-10.4); Monocytes Absolute Auto 0.1 K/mm3 (0.1-0.6); Monocytes Percent Auto 0.8 % (2.6-8.5); Neutrophils Absolute Auto 7.6 K/mm3 (1.3-6.7); Neutrophils Percent Auto 90.8 % (45.5-73.1); Platelet Count Result 200 k/mm3 (150-375); Red Blood Count 5.36 M/mm3 (4.6-6.20); Red Cell Distribution Width 13.5 % (11.5-14.5); White Blood Count 8.4 K/mm3 (4.5-10.0)
[2025-04-30 05:56] LABS: Alanine Aminotransferase 18 U/L (6-50); Albumin Level 4.3 g/dL (3.5-5.1); Alkaline Phosphatase 145 U/L (38-126); Anion Gap 10 mmol/L (4-12); Aspartate Amino Transferase 28 U/L (17-59); Blood Urea Nitrogen 14 mg/dL (9-20); Calcium 9.1 mg/dL (8.4-10.2); Carbon Dioxide 24 mmol/L (22-30); Chloride 103 mmol/L (98-107); Estimated CRCL calculation 111 ml/min; Estimated Glomerular Filt Rate > 60; Glucose 146 mg/dL (65-110); Magnesium 2.1 mg/dL (1.6-2.3); Potassium 3.8 mmol/L (3.4-5.0); Sodium 137 mmol/L (137-145)
[2025-04-30 06:04] LABS: NT Pro B Type Natriuretic Pept 317 pg/mL (19.9-100)
--- NOTE | 2025-04-30 06:58 | P.CONPL_ITS ---
Assessment and Plan Assessment and plan (1) Interstitial lung disease: Code(s): J84.9 - Interstitial pulmonary disease, unspecified Status: Acute Assessment and Plan: Patient presents with 4 month history of worsening dry cough, 2 month history of worsening dyspnea on exertion and shortness of breath and 2-3 week history of wheezing. Patient with hypertensive urgency, blood pressure 216/118, hypoxemia when he presented to the emergency room requiring 2 L oxygen. Patient had a CT scan of the chest which demonstrated diffuse right lung reticulations with mild ground-glass infiltrates, peripheral honeycombing and lower lobe traction bronchiectasis. The left lung showed peripheral and basilar predominant reticulations with minimal ground-glass infiltrates and lower lobe traction bronchiectasis but no peripheral honeycombing. In my opinion this is a typical UIP CT pattern. patient initially treated with IV Lasix, ceftriaxone, doxycycline, DuoNebs and Solu-Medrol. 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 He does have a dust collecting system to minimize exposure to sawdust. Patient has down pillows. patient has a 10 pack year tobacco history, quit in 1966. Daily marijuana inhalation at 5 a day from [id number]. 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 04/30/2025: Overall the patient tells me he feels the same today as he did yesterday. He has the same cough. The DuoNebs have to helped his congestion and allowed him to take deeper breaths. He denies fever, chills, rigors, hemoptysis. When I enter the room he is on 1 L nasal cannula saturations 94%. I placed him on room air and after 23 minutes his saturations were 93%. His white blood cell count is 8.4, his creatinine is 0.79. Plan: I will send serologies for autoimmune and connective tissue disorders looking for etiologies of his interstitial lung disease. I will order a MARK screen that includes 11 different auto antibodies, an ANCA screen, a rheumatoid factor, anti CCP antibody, hypersensitivity pneumonitis panel, a CPK, an aldolase level, and myomarker 3 plus profile. The patient tells me he has a clinical benefit from DuoNebs and I will continue these q.6 hours. The patient has no formal diagnosis of asthma or COPD. I will discontinue Solu-Medrol at this time and follow him clinically on DuoNebs. Discussed with Dr. Monteiro, will follow with you. (2) Pneumonia: Code(s): J18.9 - Pneumonia, unspecified organism Status: Acute Assessment and Plan: Patient presents with 4 month history of worsening dry cough, 2 month history of worsening dyspnea on exertion and shortness of breath and 2-3 week history of wheezing. He is afebrile. Has no leukocytosis and no focal infiltrates on his CT scan of the chest. COVID, influenza, RSV RT PCR assay negative. Plan: Although bacterial infection is unlikely I will continue ceftriaxone and doxycycline at this time, both day 2. I will check a procalcitonin. I will send a respiratory pathogen panel, urine for Legionella, urine for pneumococcal and serum for mycoplasma IgM. I will send an HIV screen. I will perform overnight oximetry on room air. History of Present Illness History of Present Illness Consult date: 04/30/25 Chief complaint: Hypoxic Respiratory Failure Narrative: 04/30/2025: This is a new pulmonary consult for interstitial lung disease 70-year-old with a history of hypertension, arthritis of both feet status post operation now with no pain, tremor for 20 years, hypertension currently on no home medicines. The patient had no respiratory issues as a child, teenager or through his adult licea. [facility] in his 20s. One year ago the patient could walk 5 miles and was performing an exercise routine. In October of 2025 he could walk 2 miles because he stops exercising. He did not stop exercising because of any respiratory issues. He had no respiratory limitations in his activities of daily living at that time. Patient smoked tobacco from age [age] at 1 and half packs per day for a total of 10 pack years. Patient was exposed to secondhand smoke from both of his parents. He was exposed to secondhand smoke from his 2nd last exposure was 1998. Patient smoked daily marijuana from [id number] at 5 inhalations a day. 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 He does have a dust collecting system for his table saw so that there is minimal inhalation of dust. He has not done this work in the last 6 months not because of any respiratory issues he just has lost interest. The patient denies sand blasting, welding, asbestos were, professional painting, steel windmill mechanic, coal mining, construction work, ceramics work. The patient does not have any exposure to live birds. He has Down feathered pillows. The patient has no reptiles, no hot tub, no history of chemotherapy or radiation therapy, no history of injectable medicines. To the patient's knowledge she has never had COVID and he has received a total of 4 vaccines. Patient denies any history of aspiration or coughing after he eats meals. The patient denies a family history of lung scarring. Current symptoms started in December of 2024 when he developed a dry cough. At the time the cough started he had no fever, chills, rigors, myalgias, headaches, sinus congestion. Cough came became progressively worse and in February of 2025 he developed worsening dyspnea on exertion. Over the last 2-3 weeks he has developed wheezing and rest shortness of breath. He has developed no rashes or lymphadenopathy. Patient denies any pedal edema, no change in his nocturia x1, no change in his 4 pillow orthopnea and denies getting short of breath when he lays flat, no PND. Symptoms progressed and patient presented to urgent care on 04/29/2025 and a chest x-ray showed pneumonia and he was referred to the emergency department. In the emergency department his blood pressure was 216/118, heart rate 98, respirations 24, room air saturations 88 and he was placed on 2 L nasal cannula saturations 97%. White blood cell count 10.0 with eosinophils 2.6%. Hemoglobin 16.8, platelets 210. Creatinine 0.86, serum bicarb 17. BNP 283. D-dimer was negative. Venous blood gas on 2 L 7.43/33/82. COVID, influenza, RSV RT PCR assay negative. Patient had a CT scan of the chest which demonstrated diffuse right lung reticulations with mild ground-glass infiltrates, peripheral honeycombing and lower lobe traction bronchiectasis. The left lung showed peripheral and basilar predominant reticulations with minimal ground-glass infiltrates and lower lobe traction bronchiectasis but no peripheral honeycombing. In my opinion this is a typical UIP CT pattern. the patient was treated with 20 of IV Lasix, ceftriaxone, doxycycline, IV hydralazine and nitropaste. The patient was given DuoNebs and Solu-Medrol 40 Q 8. 04/30/2025: Overall the patient tells me he feels the same today as he did yesterday. He has the same cough. The DuoNebs have to helped his congestion and allowed him to take deeper breaths. He denies fever, chills, rigors, hemoptysis. When I enter the room he is on 1 L nasal cannula saturations 94%. I placed him on room air and after 23 minutes his saturations were 93%. His white blood cell count is 8.4, his creatinine is 0.79. DATA: 04/29/25: EXAMINATION: CT diagnostic chest w con INDICATION: Perihilar mass. multifocal PNA COMPARISON: None FINDINGS: Lower lung and peripheral predominant groundglass opacities and irregular septal line thickening with associated honeycombing consistent with usual interstitial pneumonia (UIP) pattern chronic interstitial lung disease. No suspicious pulmonary nodules or masses. No pleural effusion. Heart size is normal. No pericardial effusion. There is enlargement of the central pulmonary arteries consistent with pulmonary arterial hypertension and which accounts for the increased prominence of the asya on prior chest radiograph. Thoracic aorta is normal in caliber with no dissection. Mild likely reactive mediastinal lymphadenopathy, the largest right paratracheal lymph node measuring 1.3 cm in maximal short axis diameter. No other pathologically enlarged thoracic lymphadenopathy. Visualized upper abdomen is unremarkable. Severe lower cervical and mild to moderate lower thoracic predominant spondylosis. Chronic appearing mild likely physiologic anterior wedging at T12. IMPRESSION: 1. UIP pattern chronic interstitial lung disease. 2. Enlargement of the central pulmonary arteries likely related to pulmonary arterial hypertension and which accounts for the increased prominence of the asya on the prior chest radiograph. 2. Mildly likely reactive mediastinal lymphadenopathy. 09/27/2018: Treadmill stress echo with definity contrast. Indications chest pain and PSVT. Medications irbesartan villalobos and metoprolol. Exercise time 4 minutes. Baseline heart rate 91. Peak heart rate 155, predicted maximum heart rate 156, 85% predicted maximum heart rate baseline blood pressure 164/104. Peak blood pressure 232/114. Performance: Below average exercise functional capacity. Hypertensive blood pressure response. No exercise induced a resume E a. Exercise EKG normal. Resting LV function. Normal LV V size, normal systolic function normal wall thickness and no segmental wall motion abnormalities at rest. Post exercise left ventricular global systolic contractility is hyperdynamic, no segmental wall motion abnormalities and chamber size is smaller. Stress echocardiogram negative for inducible ischemia at maximal predicted heart rate 99% 10/03/2018: CHEST 2 VIEWS INDICATION: Shortness of breath TECHNIQUE: 2 view chest. FINDINGS: No prior studies for comparison. . There is mild bilateral interstitial prominence and peribronchial cuffing. There is no focal consolidation, pleural effusion, or pneumothorax. The cardiomediastinal silhouette is normal.] IMPRESSION: 1. Findings most consistent with bronchiolitis versus an atypical or viral pneumonia. 03/13/2018: EXAMINATION: CHEST 2 VIEWS INDICATION: Right anterior and posterior chest pain TECHNIQUE: PA and lateral views of the chest were obtained. COMPARISON: None FINDINGS: The heart size is upper limits of normal. A mild diffuse interstitial pattern is present. There is no pleural effusion or pneumothorax. There is mild thoracic spondylosis. Mild anterior wedging near the thoracolumbar junction is likely physiologic. IMPRESSION: 1. Findings suggestive of mild pulmonary edema. 03/14/2005: CHEST Indication: Difficulty breathing. Technique: Two view examination. Current examination is compared to prior examination of 03/01/05. There has been near complete resolution of previously described right lower lobe interstitial infiltrate. Minimal residual scarring remains. No evidence of consolidation or volume loss is seen. Heart and mediastinum are unchanged. IMPRESSION: 1. NEAR COMPLETE RESOLUTION OF THE PREVIOUSLY DESCRIBED RIGHT LOWER LOBE INTERSTITIAL INFILTRATE. 02/18/2005: CHEST Indication: Chronic cough. Chest pain. Technique: PA and lateral. Currently, no old films are available for comparison. Soft tissue density is noted involving the right lower lobe with differential including consolidation with effusion as well as mass. Recommend continued evaluation to assure interval clearing and exclusion of mass. Left lung demonstrates no consolidative infiltrate or effusion. The heart and mediastinum appear within normal limits. IMPRESSION: 1) SOFT TISSUE DENSITY INVOLVING THE RIGHT LOWER LOBE CONSISTENT WITH CONSOLIDATION WITH EFFUSION OR POSSIBLY MASS. RECOMMEND CONTINUED EVALUATION WITH SERIAL RADIOGRAPHS TO ASSURE INTERVAL CLEARING AND EXCLUSION OF MASS. Review of Systems 2 Constitutional: Constitutional: Reports no additional constitutional complaints Eyes: Eyes: Reports no additional eye complaints ENT: Reports system reviewed and no additional complaints, except as documented Cardiovascular: Cardiovascular: Reports no additional cardiovascular complaints Respiratory: Respiratory: Reports no additional respiratory complaints Gastrointestinal: Gastrointestinal: Reports no additional gastrointestinal complaints Musculoskeletal: Musculoskeletal: Reports no additional musculoskeletal complaints Neurologic: Reports system reviewed and no additional complaints, except as documented Psychiatric: Psychiatric: Reports no additional psychiatric complaints Endocrine: Endocrine: Reports no additional endocrine complaints Hematologic/Lymphatic: Hematologic/Lymphatic: Reports no additional hematologic/lymphatic complaints Allergic/Immunologic: Allergic/Immunologic: Reports no additional allergic/immunologic complaints [facility] Past Medical History Medical History Essential (primary) hypertension Family History Family History Father Malignant neoplasm of prostate, Onset Age: 73 Social History Social History Smoking status: Former smoker Tobacco type: cigarettes Smoking end date: 07/21/77 Alcohol intake: current Drinks per week: 14 Substance use: current Other substance usage details: THC Gummies Last use: 04/28/25 Do You Feel Safe in your Home?: Yes Lack of Transportation: No Lack of Food: Never True Current Housing: I Have Housing Concerned About Future Housing: No Difficulty Paying Gas/Electric Bills: No Difficulty Paying for Meds: No Currently Unemployed: No Education: Master's Degree or Higher Difficulty w/ Childcare or Family Care: No Spiritual care concerns: No Meds Home Medications and Allergies Home Medications ?Medication ?Instructions ?Recorded ?Confirmed ?Type No Home Medications 04/29/25 04/29/25 History Allergies Allergy/AdvReac Type Severity Reaction Status Date / Time No Known Allergies Allergy Verified 04/29/25 10:25 Vital Signs Vital Signs - 24 hr 04/29/25 11:48 04/29/25 11:53 04/29/25 12:00 Temperature 36.3 C L Pulse Rate 98 91 Respiratory Rate 24 H 28 H Blood Pressure 216/118 H 207/111 H Pulse Oximetry 88 L 96 96 Oxygen Delivery Room Air Nasal Cannula Oxygen Flow Rate 2 04/29/25 12:30 04/29/25 12:45 04/29/25 15:31 Temperature Pulse Rate 89 88 84 Respiratory Rate 22 H 22 H 18 Blood Pressure 189/104 H 187/104 H 165/106 H Pulse Oximetry 96 96 97 Oxygen Delivery Oxygen Flow Rate 04/29/25 17:37 04/29/25 17:46 04/29/25 18:00 Temperature 36.1 C L Pulse Rate 83 90 Respiratory Rate 16 18 Blood Pressure 163/117 H Pulse Oximetry 97 97 95 Oxygen Delivery Nasal Cannula Oxygen Flow Rate 2 04/29/25 19:47 04/29/25 20:00 04/29/25 20:57 Temperature 36.1 C L Pulse Rate 90 86 89 Respiratory Rate 17 Blood Pressure 183/94 H Pulse Oximetry 97 96 Oxygen Delivery Nasal Cannula Oxygen Flow Rate 2 04/29/25 23:40 04/29/25 23:40 04/29/25 23:55 Temperature Pulse Rate 83 83 88 Respiratory Rate 18 18 Blood Pressure Pulse Oximetry 95 Oxygen Delivery Nasal Cannula Oxygen Flow Rate 2 04/29/25 23:58 04/30/25 00:00 04/30/25 02:29 Temperature 36.7 C Pulse Rate 83 90 93 Respiratory Rate 18 16 Blood Pressure 187/100 H Pulse Oximetry 97 Oxygen Delivery Oxygen Flow Rate 04/30/25 02:45 04/30/25 04:00 04/30/25 04:00 Temperature 36.2 C L Pulse Rate 97 97 100 Respiratory Rate 16 17 Blood Pressure 172/93 H Pulse Oximetry 94 Oxygen Delivery Oxygen Flow Rate Exam 2 Const: General: cooperative, healthy appearing and comfortable O rientation/consciousness: oriented to person, oriented to place and oriented to time HENMT: Head: normal to inspection Ears: hearing grossly normal bilaterally Eyes: General: appearance normal, both eyes and all related structures Neck: Neck: normal visual inspection Chest: Chest palpation & inspection: normal inspection of the chest Resp: Effort & Inspection: normal respiratory effort and able to speak in complete sentences Auscultation: crackles, no rales, no rhonchi, no wheezes and lung sounds not diminished Other: Diffuse crackles, no wheezes. Cardio: Jugular venous distension: no JVD GI: Inspection: normal to inspection GI Palp: No abdominal tenderness Skin: General skin exam: normal color Neuro: General: oriented to person, oriented to place and oriented to time Extrem: General: normal to inspection Psych: Appearance: grossly normal Results Laboratory Findings 04/30/25 05:25 04/30/25 05:25 ABG, PT/INR, D-dimer: PT/INR, D-dimer PT 13.8 Seconds (11.1-14.7) 04/29/25 12:22 INR 1.1 04/29/25 12:22 D-Dimer 0.38 ug/mL (<0.48) 04/29/25 12:22 Abnormal lab findings: Abnormal Labs 04/29/25 04/29/25 04/30/25 12:22 14:50 05:25 Immature Gran % (Auto) 0.6 H Neut % (Auto) 90.8 H Lymph % (Auto) 17.3 L 7.6 L [place] % (Auto) 0.8 L Lymph # (Auto) 0.64 L [place] # (Auto) 0.9 H Abs Immat Gran (auto) 0.05 H 0.05 H Absolute Neuts (auto) 7.0 H 7.6 H VBG pH 7.434 H* VBG pCO2 32.8 L VBG pO2 82.2 H VBG HCO3 21.5 L Sodium 135 L Carbon Dioxide 17 L BUN 21 H Glucose 111 H 146 H Alkaline Phosphatase 142 H 145 H NT-Pro-B Natriuret Pep 283 H 317 H Ur Specific [place] > 1.045 H Diagnostic Findings Additional studies: ITS Impressions Chest CT 04/29/25 15:38
[2025-04-30] MEDS: PERFLUTREN LIPID MICROSPHERES 1.5 ML VIAL DILUTED TO 10 ML TOTAL VOLUME IV PUSH (08:20)
--- NOTE | 2025-04-30 08:41 | IVDEFINITY ---
Prior to administration of IV Definity the patient was educated on the risks and benefits of the imaging enhancing agent including potential adverse side effects. The patient verbalized understanding. Allergies were verified. No exclusion criteria were identified and at least one of the following inclusion criteria were met: 1) physician request, 2) patient technically difficult to image (per the [place] [employer] guidelines of two or more segments not discernable within the apical view), or 3) questionable left ventricular function. ?
[2025-04-30] MEDS: cefTRIAXone 2 GM/NS 100 ML 2 GM/100 ML BAG IVPB (08:55)
[2025-04-30] MEDS: hydrALAZINE HCL 20 MG/ML VIAL IV PUSH (08:55)
[2025-04-30] MEDS: LOSARTAN POTASSIUM 50 MG TABLET PO ×2 (08:55→10:59)
[2025-04-30] MEDS: ENOXAPARIN 40 MG/0.4 ML SYRINGE SUB-Q ×2 (08:55→20:29)
[2025-04-30 09:55] LABS: Creatine Kinase 29 U/L (55-170)
[2025-04-30] MEDS: amLODIPine BESYLATE 5 MG TABLET PO (10:58)
[2025-04-30] MEDS: hydroCHLOROthiazide 12.5 MG CAPSULE PO (10:59)
--- NOTE | 2025-04-30 14:24 | P.PNIM_ITS ---
Progress Note: A&P Assessment and Plan (1) Hypertensive urgency: Code(s): I16.0 - Hypertensive urgency Status: Acute Assessment and Plan: -Very elevated blood pressures on ER presentation -Mild temporary improvement with a dose of IV hydralazine upon admit to the floor Adjust antihypertensive: losartan 100mg, Amlodipine 5mg and HCTZ 12.5mg daily continue monitoring (2) Hypoxic respiratory failure: Code(s): J96.91 - Respiratory failure, unspecified with hypoxia Status: Acute Assessment and Plan: Likely from UIP CT chest reviewed autoimmune workup pending Continue Rocephin and Doxycycline Contineu Prednisone -ApneaLink order placed to screen for HUMBERTO/nocturnal oxygen needs -Pulmonary following (3) Interstitial lung disease: Code(s): J84.9 - Interstitial pulmonary disease, unspecified Status: Acute Assessment and Plan: -See above (4) 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 Review of Systems Review of Systems: All systems reviewed & are unremarkable except as noted in HPI and below Exam Narrative: GENERAL: Appears stated age, tachypnea noted with mild respiratory distress HEAD: Normocephalic, atraumatic. ENT:? Mucous membranes moist. CHEST: Diminished lung sounds with mild end expiratory wheeze noted anteriorly. No obvious rales or rhonchi HEART: Regular rate and rhythm. ? Normal peripheral pulses. ABDOMEN: Soft, nontender, nondistended. EXTREMITIES: Normal range of motion. No peripheral edema. SKIN: Warm dry normal color NEURO: Alert and oriented x3. PSYCH: Normal mood and affect Objective Data Vital Signs Vital Signs: Vital Signs - 24 hr 04/29/25 15:31 04/29/25 17:37 04/29/25 17:46 Temperature Pulse Rate 84 83 Respiratory Rate 18 16 Blood Pressure 165/106 H Pulse Oximetry 97 97 97 Oxygen Delivery Nasal Cannula Oxygen Flow Rate 2 04/29/25 18:00 04/29/25 19:47 04/29/25 20:00 Temperature 97.0 F L 96.9 F L Pulse Rate 90 90 86 Respiratory Rate 18 17 Blood Pressure 163/117 H 183/94 H Pulse Oximetry 95 97 Oxygen Delivery Oxygen Flow Rate 04/29/25 20:57 04/29/25 23:40 04/29/25 23:40 Temperature Pulse Rate 89 83 83 Respiratory Rate 18 Blood Pressure Pulse Oximetry 96 95 Oxygen Delivery Nasal Cannula Nasal Cannula Oxygen Flow Rate 2 2 04/29/25 23:55 04/29/25 23:58 04/30/25 00:00 Temperature 98.0 F Pulse Rate 88 83 90 Respiratory Rate 18 18 Blood Pressure 187/100 H Pulse Oximetry 97 Oxygen Delivery Oxygen Flow Rate 04/30/25 02:29 04/30/25 02:45 04/30/25 04:00 Temperature 97.2 F L Pulse Rate 93 97 97 Respiratory Rate 16 16 17 Blood Pressure 172/93 H Pulse Oximetry 94 Oxygen Delivery Oxygen Flow Rate 04/30/25 04:00 04/30/25 08:00 04/30/25 08:00 Temperature 97.5 F L Pulse Rate 100 106 H Respiratory Rate 18 Blood Pressure 210/109 H Pulse Oximetry 92 93 Oxygen Delivery Room Air Oxygen Flow Rate 04/30/25 08:00 04/30/25 09:42 04/30/25 12:00 Temperature Pulse Rate 100 107 H 110 H Respiratory Rate Blood Pressure 158/74 H Pulse Oximetry 91 Oxygen Delivery Oxygen Flow Rate 04/30/25 13:43 Temperature Pulse Rate 107 H Respiratory Rate 16 Blood Pressure Pulse Oximetry Oxygen Delivery Oxygen Flow Rate Intake/Output Intake/Output: Intake & Output 04/27/25 04/28/25 04/29/25 04/30/25 23:59 23:59 23:59 23:59 Intake Total 150 340 Balance 150 340 Meds/Results Medications: Active Medications Generic Name Dose Route Start Last Admin Trade Name Freq PRN Reason Stop Dose Admin Albuterol/Ipratropium 3 ml 04/30/25 02:00 04/30/25 13:43 Ipratropium 0.5 Mg/Albuterol Sulfate 2.5 Mg Ampul.Neb 3 Ml INHALATION 3 ml Q6HRT FABIOLA Administration Amlodipine Besylate 5 mg 04/30/25 09:50 04/30/25 10:58 Amlodipine Besylate 5 Mg Tablet PO 5 mg DAILY FABIOLA Administration Enoxaparin Sodium 40 mg 04/29/25 21:00 04/30/25 08:55 Enoxaparin 40 Mg/0.4 Ml Syringe SUB-Q 40 mg Q12HR FABIOLA Administration Hydralazine HCl 10 mg 04/30/25 00:21 04/30/25 01:19 Hydralazine Hcl 20 Mg/Ml Vial IV PUSH 10 mg Q6H PRN Administration Blood Pressure - High Hydrochlorothiazide 12.5 mg 04/30/25 09:50 04/30/25 10:59 Hydrochlorothiazide 12.5 Mg Capsule PO 12.5 mg QAM FABIOLA Administration Doxycycline Hyclate 100 mg in 100 mls @ 100 mls/hr 04/30/25 06:00 04/30/25 05:36 Vibramycin 100 Mg/Ns 100 Ml IVPB 100 mls/hr Q12H FABIOLA Administration Ceftriaxone Sodium 2 gm in 100 mls @ 200 mls/hr 04/30/25 09:00 04/30/25 09:25 Rocephin 2 Gm/Ns 100 Ml IVPB Infused Q24H FABIOLA Infusion Losartan Potassium 100 mg 04/30/25 09:50 04/30/25 11:15 Losartan Potassium 50 Mg Tablet PO Not Given DAILY FABIOLA Melatonin 10 mg 04/30/25 00:20 04/30/25 00:20 Melatonin 5 Mg Tablet PO Not Given HS FABIOLA Nitroglycerin 1 inch 04/29/25 23:15 04/30/25 11:15 Nitroglycerin Ointment 1 Inch Dose TRANSDERM 1 inch Q6HR FABIOLA Administration Radiology Results: ITS Impressions Chest CT 04/29/25 15:38 IMPRESSION: 1. UIP pattern chronic interstitial lung disease. 2. Enlargement of the central pulmonary arteries likely related to pulmonary arterial hypertension and which accounts for the increased prominence of the asya on the prior chest radiograph. 2. Mildly likely reactive mediastinal lymphadenopathy. Labs Labs: Laboratory Results - last 24 hr 04/29/25 04/29/25 04/30/25 14:50 15:24 05:21 WBC RBC Hgb Hct MCV MCH MCHC RDW Plt Count MPV Immature Gran % (Auto) Neut % (Auto) Lymph % (Auto) [place] % (Auto) Eos % (Auto) Baso % (Auto) Lymph # (Auto) [place] # (Auto) Eos # (Auto) Baso # (Auto) Abs Immat Gran (auto) Absolute Neuts (auto) Absolute Nucleated RBC Nucleated RBC % Sodium Potassium Chloride Carbon Dioxide Anion Gap BUN Creatinine Estim Creat Clear Calc Estimated GFR Glucose Calcium Magnesium Total Bilirubin AST ALT Alkaline Phosphatase Total Creatine Kinase 29 L Troponin I < 0.012 NT-Pro-B Natriuret Pep Total Protein Albumin Procalcitonin Urine Color Yellow Urine Appearance Clear Urine pH 5.0 Ur Specific [place] > 1.045 H Urine Protein Negative Urine Glucose (UA) Negative Urine Ketones Negative Ur Blood (Man) Negative Urine Nitrate Negative Urine Bilirubin Negative Urine Urobilinogen 0.2 Leukocyte Esterase Rfl Negative Rheumatoid Factor Rheumatoid Factor Scrn Rheumatoid Factor Titer 04/30/25 04/30/25 05:25 09:19 WBC 8.4 RBC 5.36 Hgb 16.7 Hct 50.0 MCV 93.3 MCH 31.2 MCHC 33.4 RDW 13.5 Plt Count 200 MPV 9.8 Immature Gran % (Auto) 0.6 H Neut % (Auto) 90.8 H Lymph % (Auto) 7.6 L [place] % (Auto) 0.8 L Eos % (Auto) 0.0 Baso % (Auto) 0.2 Lymph # (Auto) 0.64 L [place] # (Auto) 0.1 Eos # (Auto) 0.0 Baso # (Auto) 0.0 Abs Immat Gran (auto) 0.05 H Absolute Neuts (auto) 7.6 H Absolute Nucleated RBC 0.000 Nucleated RBC % 0.0 Sodium 137 Potassium 3.8 Chloride 103 Carbon Dioxide 24 Anion Gap 10 BUN 14 D Creatinine 0.79 Estim Creat Clear Calc 111 Estimated GFR > 60 Glucose 146 H Calcium 9.1 Magnesium 2.1 Total Bilirubin 1.0 AST 28 ALT 18 Alkaline Phosphatase 145 H Total Creatine Kinase Troponin I NT-Pro-B Natriuret Pep 317 H Total Protein 8.0 Albumin 4.3 Procalcitonin 0.0 Urine Color Urine Appearance Urine pH Ur Specific [place] Urine Protein Urine Glucose (UA) Urine Ketones Ur Blood (Man) Urine Nitrate Urine Bilirubin Urine Urobilinogen Leukocyte Esterase Rfl Rheumatoid Factor 11.0 Rheumatoid Factor Scrn Cancelled Rheumatoid Factor Titer Cancelled Quality VTE Prophylaxis VTE prophylaxis: pharmacologic ordered
[2025-04-30 15:13] LABS: HIV 1/2 Ab P24 Ag Result Reactive (Negative)
[2025-04-30] MEDS: MELATONIN 5 MG TABLET 10 MG PO (20:29)
[2025-05-01] VITALS (18 sets, daily range): BP systolic 149–180; BP diastolic 83–93; PULSE 83–108; RESP 16–20; TEMP 36–36.6; O2SAT 92–95
[2025-05-01] MEDS: NITROGLYCERIN OINTMENT 1 INCH DOSE TRANSDERM ×2 (00:49→06:19)
[2025-05-01 05:58] LABS: Basophils Percent Auto 0.2 % (0.2-1.2); Eosinophils Absolute Auto 0.1 K/mm3 (0-0.3); Eosinophils Percent Auto 0.4 % (0-4.4); Hematocrit 49.3 % (42.0-52.0); Hemoglobin 16.4 g/dL (14.0-18.0); Immature Granulocyte Absolute 0.08 K/mm3 (0.00-0.031); Immature Granulocyte Percent A 0.5 % (0-0.5); Lymphocytes Absolute Auto 1.89 K/mm3 (0.9-3.2); Lymphocytes Percent Auto 11.6 % (18.3-44.2); Mean Corpuscular HGB Conc 33.3 g/dl (32-36); Mean Corpuscular Hemoglobin 31.5 pg (26-34); Mean Corpuscular Volume 94.6 fl (80-100); Mean Platelet Volume 9.6 fl (7.4-10.4); Monocytes Absolute Auto 1.3 K/mm3 (0.1-0.6); Monocytes Percent Auto 8.2 % (2.6-8.5); Neutrophils Absolute Auto 12.9 K/mm3 (1.3-6.7); Neutrophils Percent Auto 79.1 % (45.5-73.1); Platelet Count Result 220 k/mm3 (150-375); Red Blood Count 5.21 M/mm3 (4.6-6.20); Red Cell Distribution Width 13.8 % (11.5-14.5); White Blood Count 16.3 K/mm3 (4.5-10.0)
[2025-05-01 06:05] LABS: Alanine Aminotransferase 16 U/L (6-50); Albumin Level 4.1 g/dL (3.5-5.1); Alkaline Phosphatase 129 U/L (38-126); Anion Gap 9 mmol/L (4-12); Aspartate Amino Transferase 24 U/L (17-59); Bilirubin,Total 0.9 mg/dL (0.2-1.3); Blood Urea Nitrogen 18 mg/dL (9-20); Calcium 9.2 mg/dL (8.4-10.2); Carbon Dioxide 22 mmol/L (22-30); Chloride 103 mmol/L (98-107); Estimated CRCL calculation 110 ml/min; Estimated Glomerular Filt Rate > 60; Glucose 115 mg/dL (65-110); Magnesium 2.1 mg/dL (1.6-2.3); Potassium 3.2 mmol/L (3.4-5.0); Sodium 134 mmol/L (137-145); Total Protein 7.5 g/dL (6.3-8.2)
[2025-05-01] MEDS: DOXYCYCLINE 100 MG/NS 100 ML 100 MG/100 ML BAG IVPB ×2 (06:19→17:23)
[2025-05-01] MEDS: IPRATROPIUM 0.5 MG/ALBUTEROL SULFATE 2.5 MG AMPUL.NEB 3 ML INHALATION ×3 (07:57→20:50)
[2025-05-01] MEDS: hydroCHLOROthiazide 12.5 MG CAPSULE PO (08:09)
[2025-05-01] MEDS: predniSONE 20 MG TABLET 40 MG PO (08:09)
[2025-05-01] MEDS: LOSARTAN POTASSIUM 50 MG TABLET 100 MG PO (08:09)
[2025-05-01] MEDS: ENOXAPARIN 40 MG/0.4 ML SYRINGE SUB-Q ×2 (08:09→20:58)
[2025-05-01] MEDS: amLODIPine BESYLATE 5 MG TABLET PO (08:09)
[2025-05-01] MEDS: cefTRIAXone 2 GM/NS 100 ML 2 GM/100 ML BAG IVPB (08:09)
[2025-05-01 08:38] LABS: Alpha-1-Antitrypsin, QN 147 mg/dL (83-199)
--- NOTE | 2025-05-01 10:04 | P.PNPL_ITS ---
Progress Note: A&P Assessment and Plan (1) Interstitial lung disease: Code(s): J84.9 - Interstitial pulmonary disease, unspecified Status: Acute Assessment and Plan: Patient presents with 4 month history of worsening dry cough, 2 month history of worsening dyspnea on exertion and shortness of breath and 2-3 week history of wheezing. Patient with hypertensive urgency, blood pressure 216/118, hypoxemia when he presented to the emergency room requiring 2 L oxygen. Patient had a CT scan of the chest which demonstrated diffuse right lung reticulations with mild ground-glass infiltrates, peripheral honeycombing and lower lobe traction bronchiectasis. The left lung showed peripheral and basilar predominant reticulations with minimal ground-glass infiltrates and lower lobe traction bronchiectasis but no peripheral honeycombing. In my opinion this is a typical UIP CT pattern. patient initially treated with IV Lasix, ceftriaxone, doxycycline, DuoNebs and Solu-Medrol. 04/29/2025 nasal cannula 2 L ABG 7.43/33/82. 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 He does have a dust collecting system to minimize exposure to sawdust. Patient has down pillows. patient has a 10 pack year tobacco history, quit in 1966. Daily marijuana inhalation at 5 a day from [id number]. Etiology of interstitial lung disease includes: IPF, biological science aide lung, and hypersensitivity pneumonitis. 04/30/2025: Overall the patient tells me he feels the same today as he did yesterday. He has the same cough. The DuoNebs have to helped his congestion and allowed him to take deeper breaths. He denies fever, chills, rigors, hemoptysis. When I enter the room he is on 1 L nasal cannula saturations 94%. I placed him on room air and after 23 minutes his saturations were 93%. His white blood cell count is 8.4, his creatinine is 0.79. Plan: I will send serologies for autoimmune and connective tissue disorders looking for etiologies of his interstitial lung disease. I will order a MARK screen that includes 11 different auto antibodies, an ANCA screen, a rheumatoid factor, anti CCP antibody, hypersensitivity pneumonitis panel, a CPK, an aldolase level, and myomarker 3 plus profile. CPK 29, rheumatoid factor 11, remainder of serologies are pending. The patient tells me he has a clinical benefit from DuoNebs and I will continue these q.6 hours. The patient has no formal diagnosis of asthma or COPD. I will discontinue Solu-Medrol at this time and follow him clinically on DuoNebs. 05/01/2025: Patient states he feels somewhat worse today. His cough is increased. He has worsening dyspnea on exertion in the room. He denies phlegm or hemoptysis production. patient had an overnight oximetry on room air with recording duration of 6 hours and 17 minutes. Average saturation 91%. Low saturation 86%. Time with saturation less than or equal to 88% was 14 minutes. Oxygen desaturation index 3.7. Patient complains that he is having trouble expectorating his phlegm. I will add guaifenesin and Cornet flutter valve. Plan: Will continue treatment for conditions that may be aggravating his interstitial lung disease such as pneumonia and bronchospasm. Patient states the DuoNebs to help him breathe deeper. Will continue treatment for bacterial infection. Remainder of the serologies are pending. Will repeat overnight oximetry on 1 L tonight. Echocardiogram pending. Discussed with Dr. Monteiro, will follow with you. (2) Pneumonia: Code(s): J18.9 - Pneumonia, unspecified organism Status: Acute Assessment and Plan: Patient presents with 4 month history of worsening dry cough, 2 month history of worsening dyspnea on exertion and shortness of breath and 2-3 week history of wheezing. He is afebrile. Has no leukocytosis and no focal infiltrates on his CT scan of the chest. COVID, influenza, RSV RT PCR assay negative. Plan: Although bacterial infection is unlikely I will continue ceftriaxone and doxycycline at this time, both day 2. I will check a procalcitonin. I will send a respiratory pathogen panel, urine for Legionella, urine for pneumococcal and serum for mycoplasma IgM. I will send an HIV screen. I will perform overnight oximetry on room air. 05/01/25: He is afebrile. White blood cell count 16.3, creatinine 0.8. Room air saturations 94%. HIV antibody screen is positive and waiting for confirmatory testing from [facility]. Plan: continue ceftriaxone and doxycycline at this time, both day 3. respiratory pathogen panel, urine for Legionella, urine for pneumococcal and serum for mycoplasma IgM all pending. Await confirmatory testing from [facility]. 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 The patient had no respiratory issues as a child, teenager or through his adult licea. Patient hike the [employer] 2100 miles in his 20s. One year ago the patient could walk 5 miles and was performing an exercise routine. In October of 2025 he could walk 2 miles because he stops exercising. He did not stop exercising because of any respiratory issues. He had no respiratory limitations in his activities of daily living at that time. Patient smoked tobacco from age [age] at 1 and half packs per day for a total of 10 pack years. Patient was exposed to secondhand smoke from both of his parents. He was exposed to secondhand smoke from his 2nd last exposure was 1998. Patient smoked daily marijuana from [id number] at 5 inhalations a day. 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 He does have a dust collecting system for his table saw so that there is minimal inhalation of dust. He has not done this work in the last 6 months not because of any respiratory issues he just has lost interest. The patient denies sand blasting, welding, asbestos were, professional painting, steel tape control skin or spar mill operator, coal mining, construction work, ceramics work. The patient does not have any exposure to live birds. He has Down feathered pillows. The patient has no reptiles, no hot tub, no history of chemotherapy or radiation therapy, no history of injectable medicines. To the patient's knowledge she has never had COVID and he has received a total of 4 vaccines. Patient denies any history of aspiration or coughing after he eats meals. The patient denies a family history of lung scarring. Current symptoms started in December of 2024 when he developed a dry cough. At the time the cough started he had no fever, chills, rigors, myalgias, headaches, sinus congestion. Cough came became progressively worse and in February of 2025 he developed worsening dyspnea on exertion. Over the last 2-3 weeks he has developed wheezing and rest shortness of breath. He has developed no rashes or lymphadenopathy. Patient denies any pedal edema, no change in his nocturia x1, no change in his 4 pillow orthopnea and denies getting short of breath when he lays flat, no PND. Symptoms progressed and patient presented to urgent care on 04/29/2025 and a chest x-ray showed pneumonia and he was referred to the emergency department. In the emergency department his blood pressure was 216/118, heart rate 98, respirations 24, room air saturations 88 and he was placed on 2 L nasal cannula saturations 97%. White blood cell count 10.0 with eosinophils 2.6%. Hemoglobin 16.8, platelets 210. Creatinine 0.86, serum bicarb 17. BNP 283. D-dimer was negative. Venous blood gas on 2 L 7.43/33/82. COVID, influenza, RSV RT PCR assay negative. Patient had a CT scan of the chest which demonstrated diffuse right lung reticulations with mild ground-glass infiltrates, peripheral honeycombing and lower lobe traction bronchiectasis. The left lung showed peripheral and basilar predominant reticulations with minimal ground-glass infiltrates and lower lobe traction bronchiectasis but no peripheral honeycombing. In my opinion this is a typical UIP CT pattern. the patient was treated with 20 of IV Lasix, ceftriaxone, doxycycline, IV hydralazine and nitropaste. The patient was given DuoNebs and Solu-Medrol 40 Q 8. 04/30/2025: Overall the patient tells me he feels the same today as he did yesterday. He has the same cough. The DuoNebs have to helped his congestion and allowed him to take deeper breaths. He denies fever, chills, rigors, hemoptysis. When I enter the room he is on 1 L nasal cannula saturations 94%. I placed him on room air and after 23 minutes his saturations were 93%. His white blood cell count is 8.4, his creatinine is 0.79. 05/01/2025: Patient states he feels somewhat worse today. His cough is increased. He has worsening dyspnea on exertion in the room. He denies phlegm or hemoptysis production. He is afebrile. White blood cell count 16.3, creatinine 0.8. Room air saturations 94%. patient had an overnight oximetry on room air with recording duration of 6 hours and 17 minutes. Average saturation 91%. Low saturation 86%. Time with saturation less than or equal to 88% was 14 minutes. Oxygen desaturation index 3.7. Patient complains that he is having trouble expectorating his phlegm. I will add guaifenesin and Cornet flutter valve. DATA: 04/29/25: EXAMINATION: CT diagnostic chest w con INDICATION: Perihilar mass. multifocal PNA COMPARISON: None FINDINGS: Lower lung and peripheral predominant groundglass opacities and irregular septal line thickening with associated honeycombing consistent with usual interstitial pneumonia (UIP) pattern chronic interstitial lung disease. No suspicious pulmonary nodules or masses. No pleural effusion. Heart size is normal. No pericardial effusion. There is enlargement of the central pulmonary arteries consistent with pulmonary arterial hypertension and which accounts for the increased prominence of the asya on prior chest radiograph. Thoracic aorta is normal in caliber with no dissection. Mild likely reactive mediastinal lymphadenopathy, the largest right paratracheal lymph node measuring 1.3 cm in maximal short axis diameter. No other pathologically enlarged thoracic lymphadenopathy. Visualized upper abdomen is unremarkable. Severe lower cervical and mild to moderate lower thoracic predominant spondylosis. Chronic appearing mild likely physiologic anterior wedging at T12. IMPRESSION: 1. UIP pattern chronic interstitial lung disease. 2. Enlargement of the central pulmonary arteries likely related to pulmonary arterial hypertension and which accounts for the increased prominence of the asya on the prior chest radiograph. 2. Mildly likely reactive mediastinal lymphadenopathy. 09/27/2018: Treadmill stress echo with definity contrast. Indications chest pain and PSVT. Medications irbesartan villalobos and metoprolol. Exercise time 4 minutes. Baseline heart rate 91. Peak heart rate 155, predicted maximum heart rate 156, 85% predicted maximum heart rate baseline blood pressure 164/104. Peak blood pressure 232/114. Performance: Below average exercise functional capacity. Hypertensive blood pressure response. No exercise induced a resume E a. Exercise EKG normal. Resting LV function. Normal LV V size, normal systolic function normal wall thickness and no segmental wall motion abn ormalities at rest. Post exercise left ventricular global systolic contractility is hyperdynamic, no segmental wall motion abnormalities and chamber size is smaller. Stress echocardiogram negative for inducible ischemia at maximal predicted heart rate 99% 10/03/2018: CHEST 2 VIEWS INDICATION: Shortness of breath TECHNIQUE: 2 view chest. FINDINGS: No prior studies for comparison. . There is mild bilateral interstitial prominence and peribronchial cuffing. There is no focal consolidation, pleural effusion, or pneumothorax. The cardiomediastinal silhouette is normal.] IMPRESSION: 1. Findings most consistent with bronchiolitis versus an atypical or viral pneumonia. 03/13/2018: EXAMINATION: CHEST 2 VIEWS INDICATION: Right anterior and posterior chest pain TECHNIQUE: PA and lateral views of the chest were obtained. COMPARISON: None FINDINGS: The heart size is upper limits of normal. A mild diffuse interstitial pattern is present. There is no pleural effusion or pneumothorax. There is mild thoracic spondylosis. Mild anterior wedging near the thoracolumbar junction is likely physiologic. IMPRESSION: 1. Findings suggestive of mild pulmonary edema. 03/14/2005: CHEST Indication: Difficulty breathing. Technique: Two view examination. Current examination is compared to prior examination of 03/01/05. There has been near complete resolution of previously described right lower lobe interstitial infiltrate. Minimal residual scarring remains. No evidence of consolidation or volume loss is seen. Heart and mediastinum are unchanged. IMPRESSION: 1. NEAR COMPLETE RESOLUTION OF THE PREVIOUSLY DESCRIBED RIGHT LOWER LOBE INTERSTITIAL INFILTRATE. 02/18/2005: CHEST Indication: Chronic cough. Chest pain. Technique: PA and lateral. Currently, no old films are available for comparison. Soft tissue density is noted involving the right lower lobe with differential including consolidation with effusion as well as mass. Recommend continued evaluation to assure interval clearing and exclusion of mass. Left lung demonstrates no consolidative infiltrate or effusion. The heart and mediastinum appear within normal limits. IMPRESSION: 1) SOFT TISSUE DENSITY INVOLVING THE RIGHT LOWER LOBE CONSISTENT WITH CONSOLIDATION WITH EFFUSION OR POSSIBLY MASS. RECOMMEND CONTINUED EVALUATION WITH SERIAL RADIOGRAPHS TO ASSURE INTERVAL CLEARING AND EXCLUSION OF MASS. Review of Systems Constitutional: Constitutional: Reports no additional constitutional complaints Eyes: Eyes: Reports no additional eye complaints ENT: Reports system reviewed and no additional complaints, except as documented Cardiovascular: Cardiovascular: Reports no additional cardiovascular c omplaints Respiratory: Respiratory: Reports no additional respiratory complaints Gastrointestinal: Gastrointestinal: Reports no additional gastrointestinal complaints Musculoskeletal: Musculoskeletal: Reports no additional musculoskeletal complaints Neurologic: Reports system reviewed and no additional complaints, except as documented Psychiatric: Psychiatric: Reports no additional psychiatric complaints Endocrine: Endocrine: Reports no additional endocrine complaints Hematologic/Lymphatic: Hematologic/Lymphatic: Reports no additional hematologic/lymphatic complaints Allergic/Immunologic: Allergic/Immunologic: Reports no additional allergic/immunologic complaints Exam Const: General: cooperative, healthy appearing and comfortable Orientation/consciousness: oriented to person, oriented to place and oriented to time HENMT: Head: normal to inspection Ears: hearing grossly normal bilaterally Eyes: General: appearance normal, both eyes and all related structures Neck: Neck: normal visual inspection Chest: Chest palpation & inspection: normal inspection of the chest Resp: Effort & Inspection: normal respiratory effort and able to speak in complete sentences Auscultation: crackles, no rales, no rhonchi, no wheezes and lung sounds not diminished Other: Diffuse crackles, no wheezes. Cardio: Jugular venous distension: no JVD GI: Inspection: normal to inspection Skin: General skin exam: normal color Neuro: General: oriented to person, oriented to place and oriented to time Extrem: General: normal to inspection Psych: Appearance: grossly normal Objective Data Vital Signs Vital Signs: Vital Signs - 24 hr 04/30/25 12:00 04/30/25 12:00 04/30/25 13:43 Temperature 36.1 C L Pulse Rate 110 H 115 H 107 H Respiratory Rate 18 16 Blood Pressure 150/70 H Pulse Oximetry 93 Oxygen Delivery Fraction of Inspired Oxygen 04/30/25 16:00 04/30/25 16:00 04/30/25 19:41 Temperature 36.1 C L 36.1 C L Pulse Rate 100 98 97 Respiratory Rate 18 16 Blood Pressure 151/86 H 154/86 H Pulse Oximetry 93 95 Oxygen Delivery Fraction of Inspired Oxygen 04/30/25 20:00 04/30/25 20:30 04/30/25 20:49 Temperature Pulse Rate 92 93 Respiratory Rate 14 Blood Pressure Pulse Oximetry Oxygen Delivery Room Air Fraction of Inspired Oxygen 04/30/25 21:01 04/30/25 22:30 04/30/25 23:10 Temperature 36.1 C L Pulse Rate 95 93 94 Respiratory Rate 14 14 16 Blood Pressure 167/84 H Pulse Oximetry 92 94 Oxygen Delivery Room Air Fraction of Inspired Oxygen 21 05/01/25 00:00 05/01/25 03:48 05/01/25 04:19 Temperature 36.2 C L Pulse Rate 90 92 92 Respiratory Rate 16 Blood Pressure 175/89 H Pulse Oximetry 93 Oxygen Delivery Fraction of Inspired Oxygen 05/01/25 07:55 05/01/25 07:58 05/01/25 08:00 Temperature 36.1 C L Pulse Rate 88 88 106 H Respiratory Rate 20 20 20 Blood Pressure 180/93 H Pulse Oximetry 94 94 Oxygen Delivery Room Air Fraction of Inspired Oxygen 21 05/01/25 08:00 05/01/25 08:00 05/01/25 08:05 Temperature Pulse Rate 97 85 Respiratory Rate 20 Blood Pressure Pulse Oximetry Oxygen Delivery Room Air Fraction of Inspired Oxygen 05/01/25 09:48 05/01/25 09:50 Temperature Pulse Rate 95 97 Respiratory Rate Blood Pressure 157/89 H Pulse Oximetry 94 Oxygen Delivery Fraction of Inspired Oxygen Intake/Output Intake/Output: Intake & Output 04/28/25 04/29/25 04/30/25 05/01/25 23:59 23:59 23:59 23:59 Intake Total 150 1020 440 Balance 150 1020 440 Meds/Results Medications: Active Medications Generic Name Dose Route Start Last Admin Trade Name Freq PRN Reason Stop Dose Admin Albuterol/Ipratropium 3 ml 04/30/25 02:00 05/01/25 07:57 Ipratropium 0.5 Mg/Albuterol Sulfate 2.5 Mg Ampul.Neb 3 Ml INHALATION 3 ml Q6HRT FABIOLA Administration Amlodipine Besylate 5 mg 04/30/25 09:50 05/01/25 08:09 Amlodipine Besylate 5 Mg Tablet PO 5 mg DAILY FABIOLA Administration Enoxaparin Sodium 40 mg 04/29/25 21:00 05/01/25 08:09 Enoxaparin 40 Mg/0.4 Ml Syringe SUB-Q 40 mg Q12HR FABIOLA Administration Hydralazine HCl 10 mg 04/30/25 00:21 04/30/25 01:19 Hydralazine Hcl 20 Mg/Ml Vial IV PUSH 10 mg Q6H PRN Administration Blood Pressure - High Hydrochlorothiazide 12.5 mg 04/30/25 09:50 05/01/25 08:09 Hydrochlorothiazide 12.5 Mg Capsule PO 12.5 mg QAM FABIOLA Administration Doxycycline Hyclate 100 mg in 100 mls @ 100 mls/hr 04/30/25 06:00 05/01/25 07:19 Vibramycin 100 Mg/Ns 100 Ml IVPB Infused Q12H FABIOLA Infusion Ceftriaxone Sodium 2 gm in 100 mls @ 200 mls/hr 04/30/25 09:00 05/01/25 08:39 Rocephin 2 Gm/Ns 100 Ml IVPB Infused Q24H FABIOLA Infusion Losartan Potassium 100 mg 04/30/25 09:50 05/01/25 08:09 Losartan Potassium 50 Mg Tablet PO 100 mg DAILY FABIOLA Administration Melatonin 10 mg 04/30/25 00:20 04/30/25 20:29 Melatonin 5 Mg Tablet PO 10 mg HS FABIOLA Administration Nitroglycerin 1 inch 04/29/25 23:15 05/01/25 06:19 Nitroglycerin Ointment 1 Inch Dose TRANSDERM 1 inch Q6HR FABIOLA Administration Prednisone 40 mg 05/01/25 08:00 05/01/25 08:09 Prednisone 20 Mg Tablet PO 40 mg DAILY@0800 FABIOLA Administration Radiology Results: ITS Impressions Chest CT 04/29/25 15:38 IMPRESSION: 1. UIP pattern chronic interstitial lung disease. 2. Enlargement of the central pulmonary arteries likely related to pulmonary arterial hypertension and which accounts for the increased prominence of the asya on the prior chest radiograph. 2. Mildly likely reactive mediastinal lymphadenopathy. Labs Labs: Laboratory Results - last 24 hr 04/30/25 04/30/25 04/30/25 05:25 09:19 09:27 WBC RBC Hgb Hct MCV MCH MCHC RDW Plt Count MPV Immature Gran % (Auto) Neut % (Auto) Lymph % (Auto) [place] % (Auto) Eos % (Auto) Baso % (Auto) Lymph # (Auto) [place] # (Auto) Eos # (Auto) Baso # (Auto) Abs Immat Gran (auto) Absolute Neuts (auto) Absolute Nucleated RBC Nucleated RBC % Sodium Potassium Chloride Carbon Dioxide Anion Gap BUN Creatinine Estim Creat Clear Calc Estimated GFR Glucose Calcium Magnesium Total Bilirubin AST ALT Alkaline Phosphatase Total Protein Albumin [id number] 147 Procalcitonin 0.0 Rheumatoid Factor 11.0 Rheumatoid Factor Scrn Cancelled Rheumatoid Factor Titer Cancelled HIV 1&2 Ab/P24 Ag 4thGn Reactive 05/01/25 05:28 WBC 16.3 H RBC 5.21 Hgb 16.4 Hct 49.3 MCV 94.6 MCH 31.5 MCHC 33.3 RDW 13.8 Plt Count 220 MPV 9.6 Immature Gran % (Auto) 0.5 Neut % (Auto) 79.1 H Lymph % (Auto) 11.6 L [place] % (Auto) 8.2 Eos % (Auto) 0.4 Baso % (Auto) 0.2 Lymph # (Auto) 1.89 [place] # (Auto) 1.3 H Eos # (Auto) 0.1 Baso # (Auto) 0.0 Abs Immat Gran (auto) 0.08 H Absolute Neuts (auto) 12.9 H Absolute Nucleated RBC 0.000 Nucleated RBC % 0.0 Sodium 134 L Potassium 3.2 L Chloride 103 Carbon Dioxide 22 Anion Gap 9 BUN 18 Creatinine 0.80 Estim Creat Clear Calc 110 Estimated GFR > 60 Glucose 115 H Calcium 9.2 Magnesium 2.1 Total Bilirubin 0.9 AST 24 ALT 16 Alkaline Phosphatase 129 H Total Protein 7.5 Albumin 4.1 [id number] Procalcitonin Rheumatoid Factor Rheumatoid Factor Scrn Rheumatoid Factor Titer HIV 1&2 Ab/P24 Ag 4thGn
[2025-05-01] MEDS: guaiFENesin 12 HR 600 MG TABCR 1200 MG PO ×2 (10:38→20:58)
--- NOTE | 2025-05-01 13:00 | PM.IMPN ---
Progress Note: A&P Assessment and Plan (1) Hypertensive urgency: Code(s): I16.0 - Hypertensive urgency Status: Acute Assessment and Plan: BP on admission 216/118 now losartan 100mg, Amlodipine 5mg and HCTZ 12.5mg daily BP today 157/89 s/p Nitro paste may increase Amlodipine to 10mg tomorrow if no improvement tomorrow Plan is to discharge tomorrow (2) Hypoxic respiratory failure: Code(s): J96.91 - Respiratory failure, unspecified with hypoxia Status: Acute Assessment and Plan: Likely from [facility] CT chest reviewed autoimmune workup pending Continue Rocephin and Doxycycline Continue Prednisone -ApneaLink order placed to screen for HUM[place]ERTO/nocturnal oxygen needs -Pulmonary following For overnight oximetry (3) Interstitial lung disease: Code(s): J84.9 - Interstitial pulmonary disease, unspecified Status: Acute Assessment and Plan: -See above (4) Pulmonary hypertension: Code(s): I27.20 - Pulmonary hypertension, unspecified Status: Suspected Assessment and Plan: -Suspected based on imaging, see above (5) New onset of congestive heart failure: Code(s): I50.9 - Heart failure, unspecified Status: Suspected Assessment and Plan: -Suspected based on chronic worsening cough, CT imaging, Chronic HTN hx and worsening over months, see above Plan HIV positive result discussed with Pulmonology and it is likely false positive confirmation test pending DVT prophylaxis on Sq lovenox Possible dsicharge tomorrow Subjective Date/time seen: 05/01/25 13:00 Interval history: Comfortable at bedside Review of Systems Review of Systems: All systems reviewed & are unremarkable except as noted in HPI and below Exam Narrative: GENERAL: Appears stated age, tachypnea noted with mild respiratory distress HEAD: Normocephalic, atraumatic. ENT:? Mucous membranes moist. CHEST: Diminished lung sounds with mild end expiratory wheeze noted anteriorly. No obvious rales or rhonchi HEART: Regular rate and rhythm. ? Normal peripheral pulses. ABDOMEN: Soft, nontender, nondistended. EXTREMITIES: Normal range of motion. No peripheral edema. SKIN: Warm dry normal color NEURO: Alert and oriented x3. PSYCH: Normal mood and affect Objective Data Vital Signs Vital Signs: Vital Signs - 24 hr 04/30/25 13:43 04/30/25 16:00 04/30/25 16:00 Temperature 97.0 F L Pulse Rate 107 H 100 98 Respiratory Rate 16 18 Blood Pressure 151/86 H Pulse Oximetry 93 Oxygen Delivery Fraction of Inspired Oxygen 04/30/25 19:41 04/30/25 20:00 04/30/25 20:30 Temperature 97.0 F L Pulse Rate 97 92 Respiratory Rate 16 Blood Pressure 154/86 H Pulse Oximetry 95 Oxygen Delivery Room Air Fraction of Inspired Oxygen 04/30/25 20:49 04/30/25 21:01 04/30/25 22:30 Temperature Pulse Rate 93 95 93 Respiratory Rate 14 14 14 Blood Pressure Pulse Oximetry 92 Oxygen Delivery Room Air Fraction of Inspired Oxygen 21 04/30/25 23:10 05/01/25 00:00 05/01/25 03:48 Temperature 97.0 F L 97.2 F L Pulse Rate 94 90 92 Respiratory Rate 16 16 Blood Pressure 167/84 H 175/89 H Pulse Oximetry 94 93 Oxygen Delivery Fraction of Inspired Oxygen 05/01/25 04:19 05/01/25 07:55 05/01/25 07:58 Temperature Pulse Rate 92 88 88 Respiratory Rate 20 20 Blood Pressure Pulse Oximetry 94 Oxygen Delivery Room Air Fraction of Inspired Oxygen 21 05/01/25 08:00 05/01/25 08:00 05/01/25 08:00 Temperature 97.0 F L Pulse Rate 106 H 97 Respiratory Rate 20 Blood Pressure 180/93 H Pulse Oximetry 94 Oxygen Delivery Room Air Fraction of Inspired Oxygen 05/01/25 08:05 05/01/25 09:48 05/01/25 09:50 Temperature Pulse Rate 85 95 97 Respiratory Rate 20 Blood Pressure 157/89 H Pulse Oximetry 94 Oxygen Delivery Fraction of Inspired Oxygen Intake/Output Intake/Output: Intake & Output 04/28/25 04/29/25 04/30/25 05/01/25 23:59 23:59 23:59 23:59 Intake Total 150 1020 440 Balance 150 1020 440 Meds/Results Medications: Active Medications Generic Name Dose Route Start Last Admin Trade Name Freq PRN Reason Stop Dose Admin Albuterol/Ipratropium 3 ml 04/30/25 02:00 05/01/25 07:57 Ipratropium 0.5 Mg/Albuterol Sulfate 2.5 Mg Ampul.Neb 3 Ml INHALATION 3 ml Q6HRT FABIOLA Administration Amlodipine Besylate 5 mg 04/30/25 09:50 05/01/25 08:09 Amlodipine Besylate 5 Mg Tablet PO 5 mg DAILY FABIOLA Administration Enoxaparin Sodium 40 mg 04/29/25 21:00 05/01/25 08:09 Enoxaparin 40 Mg/0.4 Ml Syringe SUB-Q 40 mg Q12HR FABIOLA Administration Guaifenesin 1,200 mg 05/01/25 10:20 05/01/25 10:38 Guaifenesin 12 Hr 600 Mg Tabcr PO 1,200 mg Q12HR FABIOLA Administration Hydralazine HCl 10 mg 04/30/25 00:21 04/30/25 01:19 Hydralazine Hcl 20 Mg/Ml Vial IV PUSH 10 mg Q6H PRN Administration Blood Pressure - High Hydrochlorothiazide 12.5 mg 04/30/25 09:50 05/01/25 08:09 Hydrochlorothiazide 12.5 Mg Capsule PO 12.5 mg QAM FABIOLA Administration Doxycycline Hyclate 100 mg in 100 mls @ 100 mls/hr 04/30/25 06:00 05/01/25 07:19 Vibramycin 100 Mg/Ns 100 Ml IVPB Infused Q12H FABIOLA Infusion Ceftriaxone Sodium 2 gm in 100 mls @ 200 mls/hr 04/30/25 09:00 05/01/25 08:39 Rocephin 2 Gm/Ns 100 Ml IVPB Infused Q24H FABIOLA Infusion Losartan Potassium 100 mg 04/30/25 09:50 05/01/25 08:09 Losartan Potassium 50 Mg Tablet PO 100 mg DAILY FABIOLA Administration Melatonin 10 mg 04/30/25 00:20 04/30/25 20:29 Melatonin 5 Mg Tablet PO 10 mg HS FABIOLA Administration Prednisone 40 mg 05/01/25 08:00 05/01/25 08:09 Prednisone 20 Mg Tablet PO 40 mg DAILY@0800 FABIOLA Administration Radiology Results: ITS Impressions Chest CT 04/29/25 15:38 IMPRESSION: 1. UIP pattern chronic interstitial lung disease. 2. Enlargement of the central pulmonary arteries likely related to pulmonary arterial hypertension and which accounts for the increased prominence of the asya on the prior chest radiograph. 2. Mildly likely reactive mediastinal lymphadenopathy. Labs Labs: Laboratory Results - last 24 hr 04/30/25 04/30/25 05/01/25 09:19 09:27 05:28 WBC 16.3 H RBC 5.21 Hgb 16.4 Hct 49.3 MCV 94.6 MCH 31.5 MCHC 33.3 RDW 13.8 Plt Count 220 MPV 9.6 Immature Gran % (Auto) 0.5 Neut % (Auto) 79.1 H Lymph % (Auto) 11.6 L [place] % (Auto) 8.2 Eos % (Auto) 0.4 Baso % (Auto) 0.2 Lymph # (Auto) 1.89 [place] # (Auto) 1.3 H Eos # (Auto) 0.1 Baso # (Auto) 0.0 Abs Immat Gran (auto) 0.08 H Absolute Neuts (auto) 12.9 H Absolute Nucleated RBC 0.000 Nucleated RBC % 0.0 Sodium 134 L Potassium 3.2 L Chloride 103 Carbon Dioxide 22 Anion Gap 9 BUN 18 Creatinine 0.80 Estim Creat Clear Calc 110 Estimated GFR > 60 Glucose 115 H Calcium 9.2 Magnesium 2.1 Total Bilirubin 0.9 AST 24 ALT 16 Alkaline Phosphatase 129 H Total Protein 7.5 Albumin 4.1 Alqux-3-Hzniswycnqs 147 Procalcitonin 0.0 HIV 1&2 Ab/P24 Ag 4thGn Reactive Quality VTE Prophylaxis VTE prophylaxis: pharmacologic ordered
[2025-05-01 13:59] LABS: Anti Cyclic Citrullinated Pept <16 UNITS
[2025-05-01] MEDS: MELATONIN 5 MG TABLET 10 MG PO (20:59)
[2025-05-02] VITALS (10 sets, daily range): BP systolic 156–183; BP diastolic 78–98; PULSE 80–111; RESP 18–20; TEMP 35.8–36.7; O2SAT 93–95
--- NOTE | 2025-05-02 03:06 | PCRCNOTE ---
Pt did not receive 0200 updraft treatment due to being on an overnight oximetry study. Treatment to resume at 0800.
[2025-05-02 03:29] LABS: ANA Cascade Screen NEGATIVE (NEGATIVE)
[2025-05-02 06:31] LABS: Basophils Percent Auto 0.3 % (0.2-1.2); Eosinophils Absolute Auto 0.1 K/mm3 (0-0.3); Eosinophils Percent Auto 1.1 % (0-4.4); Hemoglobin 16.1 g/dL (14.0-18.0); Immature Granulocyte Absolute 0.05 K/mm3 (0.00-0.031); Immature Granulocyte Percent A 0.4 % (0-0.5); Lymphocytes Absolute Auto 2.16 K/mm3 (0.9-3.2); Lymphocytes Percent Auto 18.6 % (18.3-44.2); Mean Corpuscular HGB Conc 32.2 g/dl (32-36); Mean Corpuscular Hemoglobin 31.3 pg (26-34); Mean Corpuscular Volume 97.1 fl (80-100); Mean Platelet Volume 9.6 fl (7.4-10.4); Monocytes Percent Auto 8.9 % (2.6-8.5); Neutrophils Absolute Auto 8.2 K/mm3 (1.3-6.7); Neutrophils Percent Auto 70.7 % (45.5-73.1); Platelet Count Result 213 k/mm3 (150-375); Red Blood Count 5.15 M/mm3 (4.6-6.20); White Blood Count 11.6 K/mm3 (4.5-10.0)
[2025-05-02 06:47] LABS: Alanine Aminotransferase 16 U/L (6-50); Alkaline Phosphatase 106 U/L (38-126); Anion Gap 8 mmol/L (4-12); Aspartate Amino Transferase 25 U/L (17-59); Bilirubin,Total 0.9 mg/dL (0.2-1.3); Blood Urea Nitrogen 22 mg/dL (9-20); Carbon Dioxide 25 mmol/L (22-30); Chloride 102 mmol/L (98-107); Estimated CRCL calculation 96 ml/min; Estimated Glomerular Filt Rate > 60; Glucose 100 mg/dL (65-110); Magnesium 2.2 mg/dL (1.6-2.3); Potassium 3.4 mmol/L (3.4-5.0); Sodium 135 mmol/L (137-145); Total Protein 7.4 g/dL (6.3-8.2)
[2025-05-02] MEDS: DOXYCYCLINE 100 MG/NS 100 ML 100 MG/100 ML BAG IVPB (07:39)
[2025-05-02] MEDS: ENOXAPARIN 40 MG/0.4 ML SYRINGE SUB-Q (08:07)
[2025-05-02] MEDS: hydroCHLOROthiazide 12.5 MG CAPSULE PO (08:08)
[2025-05-02] MEDS: guaiFENesin 12 HR 600 MG TABCR 1200 MG PO (08:08)
[2025-05-02] MEDS: LOSARTAN POTASSIUM 50 MG TABLET 100 MG PO (08:08)
[2025-05-02] MEDS: predniSONE 20 MG TABLET 40 MG PO (08:09)
[2025-05-02] MEDS: amLODIPine BESYLATE 5 MG TABLET PO (08:09)
[2025-05-02] MEDS: cefTRIAXone 2 GM/NS 100 ML 2 GM/100 ML BAG IVPB (09:04)
[2025-05-02] MEDS: IPRATROPIUM 0.5 MG/ALBUTEROL SULFATE 2.5 MG AMPUL.NEB 3 ML INHALATION ×2 (09:05→14:06)
--- NOTE | 2025-05-02 10:00 | P.PNPL_ITS ---
Progress Note: A&P Assessment and Plan (1) Interstitial lung disease: Code(s): J84.9 - Interstitial pulmonary disease, unspecified Status: Acute Assessment and Plan: Patient presents with 4 month history of worsening dry cough, 2 month history of worsening dyspnea on exertion and shortness of breath and 2-3 week history of wheezing. Patient with hypertensive urgency, blood pressure 216/118, hypoxemia when he presented to the emergency room requiring 2 L oxygen. Patient had a CT scan of the chest which demonstrated diffuse right lung reticulations with mild ground-glass infiltrates, peripheral honeycombing and lower lobe traction bronchiectasis. The left lung showed peripheral and basilar predominant reticulations with minimal ground-glass infiltrates and lower lobe traction bronchiectasis but no peripheral honeycombing. In my opinion this is a typical UIP CT pattern. patient initially treated with IV Lasix, ceftriaxone, doxycycline, DuoNebs and Solu-Medrol. 04/29/2025 nasal cannula 2 L ABG 7.43/33/82. 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 He does have a dust collecting system to minimize exposure to sawdust. Patient has down pillows. patient has a 10 pack year tobacco history, quit in 1966. Daily marijuana inhalation at 5 a day from [id number]. 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 04/30/2025: Overall the patient tells me he feels the same today as he did yesterday. He has the same cough. The DuoNebs have to helped his congestion and allowed him to take deeper breaths. He denies fever, chills, rigors, hemoptysis. When I enter the room he is on 1 L nasal cannula saturations 94%. I placed him on room air and after 23 minutes his saturations were 93%. His white blood cell count is 8.4, his creatinine is 0.79. Plan: I will send serologies for autoimmune and connective tissue disorders looking for etiologies of his interstitial lung disease. I will order a MARK screen that includes 11 different auto antibodies, an ANCA screen, a rheumatoid factor, anti CCP antibody, hypersensitivity pneumonitis panel, a CPK, an aldolase level, and myomarker 3 plus profile. CPK 29, rheumatoid factor 11, anti CCP less than 16, MARK screen negative, Anca, Aldolase, hypersensitivity pneumonitis, myositis panel pending. The patient tells me he has a clinical benefit from DuoNebs and I will continue these q.6 hours. I will discontinue Solu-Medrol and place on prednisone 40 Q day at this time and follow him clinically on DuoNebs. 05/01/2025: Patient states he feels somewhat worse today. His cough is increased. He has worsening dyspnea on exertion in the room. He denies phlegm or hemoptysis production. patient had an overnight oximetry on room air with recording duration of 6 hours and 17 minutes. Average saturation 91%. Low saturation 86%. Time with saturation less than or equal to 88% was 14 minutes. Oxygen desaturation index 3.7. Patient complains that he is having trouble expectorating his phlegm. I will add guaifenesin and Cornet flutter valve. Plan: Will continue treatment for conditions that may be aggravating his interstitial lung disease such as pneumonia and bronchospasm. Patient states the DuoNebs to help him breathe deeper. day 3 of prednisone. Will continue treatment for bacterial infection On day 3 of ceftriaxone and doxycycline. Remainder of the serologies are pending. Will repeat overnight oximetry on 1 L tonight. Echocardiogram pending. Later in the day patient had an echocardiogram with an LVEF of 60 65%, indeterminate diastolic function, normal right atrium, normal left atrium, normal right ventricular size and function. No RVSP could be measured. 05/02/2025: Patient tells me he is doing little bit better today. His breathing is better. He states he was last breathing normally in November and currently he feels 40% back to that baseline. He has no rest shortness of breath but he does have dyspnea on exertion that is improved since admission. His cough is better. His phlegm production is the same. He is on room air with saturations 92%. White blood cell count 11.6, creatinine 0.91. Patient had an overnight oximetry on 1 L nasal cannula is recording duration 7 hours and 45 minutes. Average saturation 93%. Low saturation 82%. Time with saturation less than or equal to 88% was 6 minutes. Oxygen desaturation index 4.4. From a pulmonary perspective patient is ready to be discharged on these pulmonary medications: Prednisone 40 mg p.o. q.day last dose 05/06/2025 Levofloxacin 750 mg p.o. q.day last dose 05/06/2025 Anoro Ellipta 62.5-25 at 1 puff q.day Rescue albuterol 2 puffs q.4 hours p.r.n. shortness of breath or wheezing Guaifenesin 1200 mg p.o. b.i.d. p.r.n. congestion Oxygen at rest and with activity per formal home O2 assessment which I have orde red Oxygen 2 L nasal cannula at night. Follow-up in the Pulmonary Clinic in 2-3 weeks. 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 Patient will need outpatient PFTs Discussed with Dr. Flores, will sign off, call with questions. (2) Pneumonia: Code(s): J18.9 - Pneumonia, unspecified organism Status: Acute Assessment and Plan: Patient presents with 4 month history of worsening dry cough, 2 month history of worsening dyspnea on exertion and shortness of breath and 2-3 week history of wheezing. He is afebrile. Has no leukocytosis and no focal infiltrates on his CT scan of the chest. COVID, influenza, RSV RT PCR assay negative. Plan: Although bacterial infection is unlikely I will continue ceftriaxone and doxycycline at this time, both day 2. I will check a procalcitonin. I will send a respiratory pathogen panel, urine for Legionella, urine for pneumococcal and serum for mycoplasma IgM. I will send an HIV screen. I will perform overnight oximetry on room air. 05/01/25: He is afebrile. White blood cell count 16.3, creatinine 0.8. Room air saturations 94%. HIV antibody screen is positive and waiting for confirmatory testing from [facility] laboratory. Plan: continue ceftriaxone and doxycycline at this time, both day 3. respiratory pathogen panel, urine for Legionella, urine for pneumococcal and serum for mycoplasma IgM all pending. Await confirmatory testing from [facility]. 05/02/2025: Patient is slowly improving with treatment for infection and bronchospasm. Afebrile, White blood cell count 11.6, creatinine 0.91. Plan: Will discharge on Levaquin. respiratory pathogen panel, urine for L egionella, urine for pneumococcal and serum for mycoplasma IgM all pending. Await confirmatory HIV testing from [facility], Await CD4 count. 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 The patient had no respiratory issues as a child, teenager or through his adult licea. [facility] his [facility]s. One year ago the patient could walk 5 miles and was performing an exercise routine. In October of 2025 he could walk 2 miles because he stops exercising. He did not stop exercising because of any respiratory issues. He had no respiratory limitations in his activities of daily living at that time. Patient smoked tobacco from age [age] at 1 and half packs per day for a total of 10 pack years. Patient was exposed to secondhand smoke from both of his parents. He was exposed to secondhand smoke from his 2nd last exposure was 1998. Patient smoked daily marijuana from [id number] at 5 inhalations a day. 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 He does have a dust collecting system for his table saw so that there is minimal inhalation of dust. He has not done this work in the last 6 months not because of any respiratory issues he just has lost interest. The patient denies sand blasting, welding, asbestos were, professional painting, steel sawmill relief worker, coal mining, construction work, ceramics work. The patient does not have any exposure to live birds. He has Down feathered pillows. The patient has no reptiles, no hot tub, no history of chemotherapy or radiation therapy, no history of injectable medicines. To the patient's knowledge she has never had COVID and he has received a total of 4 vaccines. Patient denies any history of aspiration or coughing after he eats meals. The patient denies a family history of lung scarring. Current symptoms started in December of 2024 when he developed a dry cough. At the time the cough started he had no fever, chills, rigors, myalgias, headaches, sinus congestion. Cough came became progressively worse and in February of 2025 he developed worsening dyspnea on exertion. Over the last 2-3 weeks he has developed wheezing and rest shortness of breath. He has developed no rashes or lymphadenopathy. Patient denies any pedal edema, no change in his nocturia x1, no change in his 4 pillow orthopnea and denies getting short of breath when he lays flat, no PND. Symptoms progressed and patient presented to urgent care on 04/29/2025 and a chest x-ray showed pneumonia and he was referred to the emergency department. In the emergency department his blood pressure was 216/118, heart rate 98, respirations 24, room air saturations 88 and he was placed on 2 L nasal cannula saturations 97%. White blood cell count 10.0 with eosinophils 2.6%. Hemoglobin 16.8, platelets 210. Creatinine 0.86, serum bicarb 17. BNP 283. D-dimer was negative. Venous blood gas on 2 L 7.43/33/82. COVID, influenza, RSV RT PCR assay negative. Patient had a CT scan of the chest which demonstrated diffuse right lung reticulations with mild ground-glass infiltrates, peripheral honeycombing and lower lobe traction bronchiectasis. The left lung showed peripheral and basilar predominant reticulations with minimal ground-glass infiltrates and lower lobe traction bronchiectasis but no peripheral honeycombing. In my opinion this is a typical UIP CT pattern. the patient was treated with 20 of IV Lasix, ceftriaxone, doxycycline, IV hydralazine and nitropaste. The patient was given DuoNebs and Solu-Medrol 40 Q 8. 04/30/2025: Overall the patient tells me he feels the same today as he did yesterday. He has the same cough. The DuoNebs have to helped his congestion and allowed him to take deeper breaths. He denies fever, chills, rigors, hemoptysis. When I enter the room he is on 1 L nasal cannula saturations 94%. I placed him on room air and after 23 minutes his saturations were 93%. His white blood cell count is 8.4, his creatinine is 0.79. 05/01/2025: Patient states he feels somewhat worse today. His cough is increased. He has worsening dyspnea on exertion in the room. He denies phlegm or hemoptysis production. He is afebrile. White blood cell count 16.3, creatinine 0.8. Room air saturations 94%. patient had an overnight oximetry on room air with recording duration of 6 hours and 17 minutes. Average saturation 91%. Low saturation 86%. Time with saturation less than or equal to 88% was 14 minutes. Oxygen desaturation index 3.7. Patient complains that he is having trouble expectorating his phlegm. I will add guaifenesin and Cornet flutter valve. Later in the day patient had an echocardiogram with an LVEF of 60 65%, indeterminate diastolic function, normal right atrium, normal left atrium, normal right ventricular size and function. No RVSP could be measured. 05/02/2025: Patient tells me he is doing little bit better today. His breathing is better. He states he was last breathing normally in November and currently he feels 40% back to that baseline. He has no rest shortness of breath but he does have dyspnea on exertion that is improved since admission. His cough is better. His phlegm production is the same. He is on room air with saturations 92%. White blood cell count 11.6, creatinine 0.91. Patient had an overnight oximetry on 1 L nasal cannula is recording duration 7 hours and 45 minutes. Average saturation 93%. Low saturation 82%. Time with saturation less than or equal to 88% was 6 minutes. Oxygen desaturation index 4.4. DATA: 04/30/25: Echo Summary 1. Definity contrast administered improved wall motion interpretation. 2. Left ventricular chamber dimension is normal. 3. Left ventricular systolic function is normal, estimated at 60-65. 4. There is mild concentric increased left ventricular wall thickness. 5. The left ventricular diastolic function is indeterminate. 6. Tissue doppler E/e' was not measured. 7. There is mild aortic valve sclerosis. 8. There is trace tricuspid valve regurgitation. Left Ventricle Definity contrast administered improved wall motion interpretation. Left ventricular chamber dimension is normal. Left ventricular systolic function is normal, estimated at 60-65. There is mild concentric increased left ventricular wall thickness. The left ventricular diastolic function is indeterminate. Tissue doppler E/e' was not measured. Right Ventricle Right ventricular chamber dimension is normal. Right ventricular systolic function is normal. Right Atria Right atrial chamber dimension is normal. 04/29/25: EXAMINATION: CT diagnostic chest w con INDICATION: Perihilar mass. multifocal PNA COMPARISON: None FINDINGS: Lower lung and peripheral predominant groundglass opacities and irregular septal line thickening with associated honeycombing consistent with usual interstitial pneumonia (UIP) pattern chronic interstitial lung disease. No suspicious pulmonary nodules or masses. No pleural effusion. Heart size is normal. No kp cardial effusion. There is enlargement of the central pulmonary arteries consistent with pulmonary arterial hypertension and which accounts for the increased prominence of the asya on prior chest radiograph. Thoracic aorta is normal in caliber with no dissection. Mild likely reactive mediastinal lymphadenopathy, the largest right paratracheal lymph node measuring 1.3 cm in maximal short axis diameter. No other pathologically enlarged thoracic lymphadenopathy. Visualized upper abdomen is unremarkable. Severe lower cervical and mild to moderate lower thoracic predominant spondylosis. Chronic appearing mild likely physiologic anterior wedging at T12. IMPRESSION: 1. UIP pattern chronic interstitial lung disease. 2. Enlargement of the central pulmonary arteries likely related to pulmonary arterial hypertension and which accounts for the increased prominence of the asya on the prior chest radiograph. 2. Mildly likely reactive mediastinal lymphadenopathy. 09/27/2018: Treadmill stress echo with definity contrast. Indications chest pain and PSVT. Medications irbesartan villalobos and metoprolol. Exercise time 4 minutes. Baseline heart rate 91. Peak heart rate 155, predicted maximum heart rate 156, 85% predicted maximum heart rate baseline blood pressure 164/104. Peak blood pressure 232/114. Performance: Below average exercise functional capacity. Hypertensive blood pressure response. No exercise induced a resume E a. Exercise EKG normal. Resting LV function. Normal LV V size, normal systolic function normal wall thickness and no segmental wall motion abnormalities at rest. Post exercise left ventricular global systolic contractility is hyperdynamic, no segmental wall motion abnormalities and chamber size is smaller. Stress echocardiogram negative for inducible ischemia at maximal predicted heart rate 99% 10/03/2018: CHEST 2 VIEWS INDICATION: Shortness of breath TECHNIQUE: 2 view chest. FINDINGS: No prior studies for comparison. . There is mild bilateral interstitial prominence and peribronchial cuffing. There is no focal consolidation, pleural effusion, or pneumothorax. The cardiomediastinal silhouette is normal.] IMPRESSION: 1. Findings most consistent with bronchiolitis versus an atypical or viral pneumonia. 03/13/2018: EXAMINATION: CHEST 2 VIEWS INDICATION: Right anterior and posterior chest pain TECHNIQUE: PA and lateral views of the chest were obtained. COMPARISON: None FINDINGS: The heart size is upper limits of normal. A mild diffuse interstitial pattern is present. There is no pleural effusion or pneumothorax. There is mild thoracic spondylosis. Mild anterior wedging near the thoracolumbar junction is likely physiologic. IMPRESSION: 1. Findings suggestive of mild pulmonary edema. 03/14/2005: CHEST Indication: Difficulty breathing. Technique: Two view examination. Current examination is compared to prior examination of 03/01/05. There has been near complete resolution of previously described right lower lobe interstitial infiltrate. Minimal residual scarring remains. No evidence of consolidation or volume loss is seen. Heart and mediastinum are unchanged. IMPRESSION: 1. NEAR COMPLETE RESOLUTION OF THE PREVIOUSLY DESCRIBED RIGHT LOWER LOBE INTERSTITIAL INFILTRATE. 02/18/2005: CHEST Indication: Chronic cough. Chest pain. Technique: PA and lateral. Currently, no old films are available for comparison. Soft tissue density is noted involving the right lower lobe with differential including consolidation with effusion as well as mass. Recommend continued evaluation to assure interval clearing and exclusion of mass. Left lung demonstrates no consolidative infiltrate or effusion. The heart and mediastinum appear within normal limits. IMPRESSION: 1) SOFT TISSUE DENSITY INVOLVING THE RIGHT LOWER LOBE CONSISTENT WITH CONSOLIDATION WITH EFFUSION OR POSSIBLY MASS. RECOMMEND CONTINUED EVALUATION WITH SERIAL RADIOGRAPHS TO ASSURE INTERVAL CLEARING AND EXCLUSION OF MASS. Review of Systems Constitutional: Constitutional: Reports no additional constitutional complaints Eyes: Eyes: Reports no additional eye complaints ENT: Reports system reviewed and no additional complaints, except as documented Cardiovascular: Cardiovascular: Reports no additional cardiovascular complaints Respiratory: Respiratory: Reports no additional respiratory complaints Gastrointestinal: Gastrointestinal: Reports no additional gastrointestinal complaints Musculoskeletal: Musculoskeletal: Reports no additional musculoskeletal complaints Neurologic: Reports system reviewed and no additional complaints, except as documented Psychiatric: Psychiatric: Reports no additional psychiatric complaints Endocrine: Endocrine: Reports no additional endocrine complaints Hematologic/Lymphatic: Hematologic/Lymphatic: Reports no additional hematologic/lymphatic complaints Allergic/Immunologic: Allergic/Immunologic: Reports no additional allergic/immunologic complaints Exam Const: General: cooperative, healthy appearing and comfortable Orientation/consciousness: oriented to person, oriented to place and oriented to time HENMT: Head: normal to inspection Ears: hearing grossly normal bilaterally Eyes: General: appearance normal, both eyes and all related structures Neck: Neck: normal visual inspection Chest: Chest palpation & inspection: normal inspection of the chest Resp: Effort & Inspection: normal respiratory effort and able to speak in complete sentences Auscultation: crackles, no rales, no rhonchi, no wheezes and lung sounds not diminished Other: Diffuse crackles, no wheezes. Cardio: Jugular venous distension: no JVD GI: Inspection: normal to inspection Skin: General skin exam: normal color Neuro: General: oriented to person, oriented to place and oriented to time Extrem: General: normal to inspection Psych: Appearance: grossly normal Objective Data Vital Signs Vital Signs: Vital Signs - 24 hr 05/01/25 12:00 05/01/25 12:00 05/01/25 14:00 Temperature 36.0 C L Pulse Rate 108 H 99 83 Respiratory Rate 20 20 Blood Pressure 161/83 H Pulse Oximetry 93 Oxygen Delivery Oxygen Flow Rate Fraction of Inspired Oxygen 05/01/25 14:12 05/01/25 16:00 05/01/25 16:00 Temperature 36.1 C L Pulse Rate 85 106 H 108 H Respiratory Rate 20 20 Blood Pressure 149/85 H Pulse Oximetry 93 Oxygen Delivery Oxygen Flow Rate Fraction of Inspired Oxygen 05/01/25 20:00 05/01/25 20:00 05/01/25 20:40 Temperature 36.6 C Pulse Rate 98 99 Respiratory Rate 18 Blood Pressure 176/88 H Pulse Oximetry 93 Oxygen Delivery Room Air Oxygen Flow Rate Fraction of Inspired Oxygen 05/01/25 20:51 05/01/25 20:59 05/01/25 21:03 Temperature Pulse Rate 83 83 84 Respiratory Rate 20 20 Blood Pressure Pulse Oximetry 95 Oxygen Delivery Room Air Oxygen Flow Rate Fraction of Inspired Oxygen 21 05/01/25 22:05 05/02/25 00:00 05/02/25 00:00 Temperature 36.3 C L Pulse Rate 98 90 84 Respiratory Rate 18 Blood Pressure 171/81 H Pulse Oximetry 92 94 Oxygen Delivery Nasal Cannula Oxygen Flow Rate 1 Fraction of Inspired Oxygen 05/02/25 04:00 05/02/25 04:00 05/02/25 08:00 Temperature 35.8 C L 36.7 C Pulse Rate 84 84 100 Respiratory Rate 18 18 Blood Pressure 156/78 H 160/87 H Pulse Oximetry 95 94 Oxygen Delivery Oxygen Flow Rate Fraction of Inspired Oxygen 05/02/25 08:00 05/02/25 08:00 05/02/25 09:00 Temperature Pulse Rate 94 84 Respiratory Rate 20 Blood Pressure Pulse Oximetry Oxygen Delivery Room Air Oxygen Flow Rate Fraction of Inspired Oxygen 05/02/25 09:09 05/02/25 09:10 Temperature Pulse Rate 83 86 Respiratory Rate 20 Blood Pressure Pulse Oximetry 93 Oxygen Delivery Room Air Oxygen Flow Rate Fraction of Inspired Oxygen 21 Intake/Output Intake/Output: Intake & Output 04/29/25 04/30/25 05/01/25 05/02/25 23:59 23:59 23:59 23:59 Intake Total 150 1020 660 680 Balance 150 1020 660 680 Meds/Results Medications: Active Medications Generic Name Dose Route Start Last Admin Trade Name Freq PRN Reason Stop Dose Admin Albuterol/Ipratropium 3 ml 04/30/25 02:00 05/02/25 09:05 Ipratropium 0.5 Mg/Albuterol Sulfate 2.5 Mg Ampul.Neb 3 Ml INHALATION 3 ml Q6HRT FABIOLA Administration Amlodipine Besylate 5 mg 04/30/25 09:50 05/02/25 08:09 Amlodipine Besylate 5 Mg Tablet PO 5 mg DAILY FABIOLA Administration Enoxaparin Sodium 40 mg 04/29/25 21:00 05/02/25 08:07 Enoxaparin 40 Mg/0.4 Ml Syringe SUB-Q 40 mg Q12HR FABIOLA Administration Guaifenesin 1,200 mg 05/01/25 10:20 05/02/25 08:08 Guaifenesin 12 Hr 600 Mg Tabcr PO 1,200 mg Q12HR FABIOLA Administration Hydralazine HCl 10 mg 04/30/25 00:21 04/30/25 01:19 Hydralazine Hcl 20 Mg/Ml Vial IV PUSH 10 mg Q6H PRN Administration Blood Pressure - High Hydrochlorothiazide 12.5 mg 04/30/25 09:50 05/02/25 08:08 Hydrochlorothiazide 12.5 Mg Capsule PO 12.5 mg QAM FABIOLA Administration Doxycycline Hyclate 100 mg in 100 mls @ 100 mls/hr 04/30/25 06:00 05/02/25 08:39 Vibramycin 100 Mg/Ns 100 Ml IVPB Infused Q12H FABIOLA Infusion Ceftriaxone Sodium 2 gm in 100 mls @ 200 mls/hr 04/30/25 09:00 05/02/25 09:34 Rocephin 2 Gm/Ns 100 Ml IVPB Infused Q24H FABIOLA Infusion Losartan Potassium 100 mg 04/30/25 09:50 05/02/25 08:08 Losartan Potassium 50 Mg Tablet PO 100 mg DAILY FABIOLA Administration Melatonin 10 mg 04/30/25 00:20 05/01/25 20:59 Melatonin 5 Mg Tablet PO 10 mg HS FABIOLA Administration Prednisone 40 mg 05/01/25 08:00 05/02/25 08:09 Prednisone 20 Mg Tablet PO 40 mg DAILY@0800 FABIOLA Administration Radiology Results: ITS Impressions Chest CT 04/29/25 15:38 IMPRESSION: 1. UIP pattern chronic interstitial lung disease. 2. Enlargement of the central pulmonary arteries likely related to pulmonary arterial hypertension and which accounts for the increased prominence of the asya on the prior chest radiograph. 2. Mildly likely reactive mediastinal lymphadenopathy. Labs Labs: Laboratory Results - last 24 hr 04/30/25 04/30/25 05/02/25 05:25 09:27 06:03 WBC 11.6 H RBC 5.15 Hgb 16.1 Hct 50.0 MCV 97.1 MCH 31.3 MCHC 32.2 RDW 14.0 Plt Count 213 MPV 9.6 Immature Gran % (Auto) 0.4 Neut % (Auto) 70.7 Lymph % (Auto) 18.6 [place] % (Auto) 8.9 H Eos % (Auto) 1.1 Baso % (Auto) 0.3 Lymph # (Auto) 2.16 [place] # (Auto) 1.0 H Eos # (Auto) 0.1 Baso # (Auto) 0.0 Abs Immat Gran (auto) 0.05 H Absolute Neuts (auto) 8.2 H Absolute Nucleated RBC 0.000 Nucleated RBC % 0.0 Sodium 135 L Potassium 3.4 Chloride 102 Carbon Dioxide 25 Anion Gap 8 BUN 22 H Creatinine 0.91 Estim Creat Clear Calc 96 Estimated GFR > 60 Glucose 100 Calcium 9.0 Magnesium 2.2 Total Bilirubin 0.9 AST 25 ALT 16 Alkaline Phosphatase 106 Total Protein 7.4 Albumin 4.0 Anti-Cycl Citrul Peptide <16 MARK Scrn Qualitative Negative
--- NOTE | 2025-05-02 11:20 | PM.IMPN ---
Progress Note: A&P Assessment and Plan (1) Hypertensive urgency: Code(s): I16.0 - Hypertensive urgency Status: Acute Assessment and Plan: BP on admission 216/118 now losartan 100mg, Amlodipine 5mg and HCTZ 12.5mg daily BP today 157/89 s/p Nitro paste may increase Amlodipine to 10mg tomorrow if no improvement tomorrow Plan is to discharge tomorrow (2) Hypoxic respiratory failure: Code(s): J96.91 - Respiratory failure, unspecified with hypoxia Status: Acute Assessment and Plan: Likely from [facility] CT chest reviewed autoimmune workup pending Continue Rocephin and Doxycycline Continue Prednisone -ApneaLink order placed to screen for HUMBERTO/nocturnal oxygen needs -Pulmonary following For overnight oximetry (3) Interstitial lung disease: Code(s): J84.9 - Interstitial pulmonary disease, unspecified Status: Acute Assessment and Plan: -See above (4) Pulmonary hypertension: Code(s): I27.20 - Pulmonary hypertension, unspecified Status: Suspected Assessment and Plan: -Suspected based on imaging, see above (5) New onset of congestive heart failure: Code(s): I50.9 - Heart failure, unspecified Status: Suspected Assessment and Plan: -Suspected based on chronic worsening cough, CT imaging, Chronic HTN hx and worsening over months, see above Plan HIV positive result discussed with Pulmonology and it is likely false positive confirmation test pending DVT prophylaxis on Sq lovenox Possible dsicharge tomorrow Subjective Date/time seen: 05/02/25 11:20 Interval history: 70-year-old with a history of hypertension, arthritis of both feet status post operation now with no pain, tremor for 20 years, hypertension currently on no home medicines. The patient had no respiratory issues as a child, teenager or through his adult licea. [facility] in his 20s. One year ago the patient could walk 5 miles and was performing an exercise routine. In October of 2025 he could walk 2 miles because he stops exercising. He did not stop exercising because of any respiratory issues. He had no respiratory limitations in his activities of daily living at that time. Patient smoked tobacco from age [age] at 1 and half packs per day for a total of 10 pack years. Patient was exposed to secondhand smoke from both of his parents. He was exposed to secondhand smoke from his 2nd last exposure was 1998. Patient smoked daily marijuana from [id number] at 5 inhalations a day. 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 He does have a dust collecting system for his table saw so that there is minimal inhalation of dust. He has not done this work in the last 6 months not because of any respiratory issues he just has lost interest. The patient denies sand blasting, welding, asbestos were, professional painting, steel cnc mill programmer, coal mining, construction work, ceramics work. The patient does not have any exposure to live birds. He has Down feathered pillows. The patient has no reptiles, no hot tub, no history of chemotherapy or radiation therapy, no history of injectable medicines. To the patient's knowledge she has never had COVID and he has received a total of 4 vaccines. Patient denies any history of aspiration or coughing after he eats meals. The patient denies a family history of lung scarring. Current symptoms started in December of 2024 when he developed a dry cough. At the time the cough started he had no fever, chills, rigors, myalgias, headaches, sinus congestion. Cough came became progressively worse and in February of 2025 he developed worsening dyspnea on exertion. Over the last 2-3 weeks he has developed wheezing and rest shortness of breath. He has developed no rashes or lymphadenopathy. Patient denies any pedal edema, no change in his nocturia x1, no change in his 4 pillow orthopnea and denies getting short of breath when he lays flat, no PND. Symptoms progressed and patient presented to urgent care on 04/29/2025 and a chest x-ray showed pneumonia and he was referred to the emergency department. In the emergency department his blood pressure was 216/118, heart rate 98, respirations 24, room air saturations 88 and he was placed on 2 L nasal cannula saturations 97%. White blood cell count 10.0 with eosinophils 2.6%. Hemoglobin 16.8, platelets 210. Creatinine 0.86, serum bicarb 17. BNP 283. D-dimer was negative. Venous blood gas on 2 L 7.43/33/82. COVID, influenza, RSV RT PCR assay negative. Patient had a CT scan of the chest which demonstrated diffuse right lung reticulations with mild ground-glass infiltrates, peripheral honeycombing and lower lobe traction bronchiectasis. The left lung showed peripheral and basilar predominant reticulations with minimal ground-glass infiltrates and lower lobe traction bronchiectasis but no peripheral honeycombing. In my opinion this is a typical UIP CT pattern. the patient was treated with 20 of IV Lasix, ceftriaxone, doxycycline, IV hydralazine and nitropaste. The patient was given DuoNebs and Solu-Medrol 40 Q 8. 04/30/2025: Overall the patient tells me he feels the same today as he did yesterday. He has the same cough. The DuoNebs have to helped his congestion and allowed him to take deeper breaths. He denies fever, chills, rigors, hemoptysis. When I enter the room he is on 1 L nasal cannula saturations 94%. I placed him on room air and after 23 minutes his saturations were 93%. His white blood cell count is 8.4, his creatinine is 0.79. 05/01/2025: Patient states he feels somewhat worse today. His cough is increased. He has worsening dyspnea on exertion in the room. He denies phlegm or hemoptysis production. He is afebrile. White blood cell count 16.3, creatinine 0.8. Room air saturations 94%. patient had an overnight oximetry on room air with recording duration of 6 hours and 17 minutes. Average saturation 91%. Low saturation 86%. Time with saturation less than or equal to 88% was 14 minutes. Oxygen desaturation index 3.7. Patient complains that he is having trouble expectorating his phlegm. I will add guaifenesin and Cornet flutter valve. Later in the day patient had an echocardiogram with an LVEF of 60 65%, indeterminate diastolic function, normal right atrium, normal left atrium, normal right ventricular size and function. No RVSP could be measured. 05/02/2025: Patient tells me he is doing little bit better today. His breathing is better. He states he was last breathing normally in November and currently he feels 40% back to that baseline. He has no rest shortness of breath but he does have dyspnea on exertion that is improved since admission. His cough is better. His phlegm production is the same. He is on room air with saturations 92%. White blood cell count 11.6, creatinine 0.91. Patient had an overnight oximetry on 1 L nasal cannula is recording duration 7 hours and 45 minutes. Average saturation 93%. Low saturation 82%. Time with saturation less than or equal to 88% was 6 minutes. Oxygen desaturation index 4.4. DATA: 04/30/25: Echo Summary 1. Definity contrast administered improved wall motion interpretation. 2. Left ventricular chamber dimension is normal. 3. Left ventricular systolic function is normal, estimated at 60-65. 4. There is mild concentric increased left ventricular wall thickness. 5. The left ventricular diastolic function is indeterminate. 6. Tissue doppler E/e' was not measured. 7. There is mild aortic valve sclerosis. 8. There is trace tricuspid valve regurgitation. Left Ventricle Definity contrast administered improved wall motion interpretation. Left ventricular chamber dimension is normal. Left ventricular systolic function is normal, estimated at 60-65. There is mild concentric increased left ventricular wall thickness. The left ventricular diastolic function is indeterminate. Tissue doppler E/e' was not measured. Right Ventricle Right ventricular chamber dimension is normal. Right ventricular systolic function is normal. Right Atria Right atrial chamber dimension is normal. 04/29/25: EXAMINATION: CT diagnostic chest w con INDICATION: Perihilar mass. multifocal PNA COMPARISON: None FINDINGS: Lower lung and peripheral predominant groundglass opacities and irregular septal line thickening with associated honeycombing consistent with usual interstitial pneumonia (UIP) pattern chronic interstitial lung disease. No suspicious pulmonary nodules or masses. No pleural effusion. Heart size is normal. No pericardial effusion. There is enlargement of the central pulmonary arteries consistent with pulmonary arterial hypertension and which accounts for the increased prominence of the asya on prior chest radiograph. Thoracic aorta is normal in caliber with no dissection. Mild likely reactive mediastinal lymphadenopathy, the largest right paratracheal lymph node measuring 1.3 cm in maximal short axis diameter. No other pathologically enlarged thoracic lymphadenopathy. Visualized upper abdomen is unremarkable. Severe lower cervical and mild to moderate lower thoracic predominant spondylosis. Chronic appearing mild likely physiologic anterior wedging at T12. IMPRESSION: 1. UIP pattern chronic interstitial lung disease. 2. Enlargement of the central pulmonary arteries likely related to pulmonary arterial hypertension and which accounts for the increased prominence of the asya on the prior chest radiograph. 2. Mildly likely reactive mediastinal lymphadenopathy. 09/27/2018: Treadmill stress echo with definity contrast. Indications chest pain and PSVT. Medications irbesartan villalobos and metoprolol. Exercise time 4 minutes. Baseline heart rate 91. Peak heart rate 155, predicted maximum heart rate 156, 85% predicted maximum heart rate baseline blood pressure 164/104. Peak blood pressure 232/114. Performance: Below average exercise functional capacity. Hypertensive blood pressure response. No exercise induced a resume E a. Exercise EKG normal. Resting LV function. Normal LV V size, normal systolic function normal wall thickness and no segmental wall motion abnormalities at rest. Post exercise left ventricular global systolic contractility is hyperdynamic, no segmental wall motion abnormalities and chamber size is smaller. Stress echocardiogram negative for inducible ischemia at maximal predicted heart rate 99% 10/03/2018: CHEST 2 VIEWS INDICATION: Shortness of breath TECHNIQUE: 2 view chest. FINDINGS: No prior studies for comparison. . There is mild bilateral interstitial prominence and peribronchial cuffing. There is no focal consolidation, pleural effusion, or pneumothorax. The cardiomediastinal silhouette is normal.] IMPRESSION: 1. Findings most consistent with bronchiolitis versus an atypical or viral pneumonia. 03/13/2018: EXAMINATION: CHEST 2 VIEWS INDICATION: Right anterior and posterior chest pain TECHNIQUE: PA and lateral views of the chest were obtained. COMPARISON: None FINDINGS: The heart size is upper limits of normal. A mild diffuse interstitial pattern is present. There is no pleural effusion or pneumothorax. There is mild thoracic spondylosis. Mild anterior wedging near the thoracolumbar junction is likely physiologic. IMPRESSION: 1. Findings suggestive of mild pulmonary edema. 03/14/2005: CHEST Indication: Difficulty breathing. Technique: Two view examination. Current examination is compared to prior examination of 03/01/05. There has been near complete resolution of previously described right lower lobe interstitial infiltrate. Minimal residual scarring remains. No evidence of consolidation or volume loss is seen. Heart and mediastinum are unchanged. IMPRESSION: 1. NEAR COMPLETE RESOLUTION OF THE PREVIOUSLY DESCRIBED RIGHT LOWER LOBE INTERSTITIAL INFILTRATE. 02/18/2005: CHEST Indication: Chronic cough. Chest pain. Technique: PA and lateral. Currently, no old films are available for comparison. Soft tissue density is noted involving the right lower lobe with differential including consolidation with effusion as well as mass. Recommend continued evaluation to assure interval clearing and exclusion of mass. Left lung demonstrates no consolidative infiltrate or effusion. The heart and mediastinum appear within normal limits. IMPRESSION: 1) SOFT TISSUE DENSITY INVOLVING THE RIGHT LOWER LOBE CONSISTENT WITH CONSOLIDATION WITH EFFUSION OR POSSIBLY MASS. RECOMMEND CONTINUED EVALUATION WITH SERIAL RADIOGRAPHS TO ASSURE INTERVAL CLEARING AND EXCLUSION OF MASS. Review of Systems Review of Systems: All systems reviewed & are unremarkable except as noted in HPI and below Exam Narrative: GENERAL: Appears stated age, tachypnea noted with mild respiratory distress HEAD: Normocephalic, atraumatic. ENT:? Mucous membranes moist. CHEST: Diminished lung sounds with mild end expiratory wheeze noted anteriorly. No obvious rales or rhonchi HEART: Regular rate and rhythm. ? Normal peripheral pulses. ABDOMEN: Soft, nontender, nondistended. EXTREMITIES: Normal range of motion. No peripheral edema. SKIN: Warm dry normal color NEURO: Alert and oriented x3. PSYCH: Normal mood and affect Objective Data Vital Signs Vital Signs: Vital Signs - 24 hr 05/01/25 12:00 05/01/25 12:00 05/01/25 14:00 Temperature 96.8 F L Pulse Rate 108 H 99 83 Respiratory Rate 20 20 Blood Pressure 161/83 H Pulse Oximetry 93 Oxygen Delivery Oxygen Flow Rate Fraction of Inspired Oxygen 05/01/25 14:12 05/01/25 16:00 05/01/25 16:00 Temperature 97.0 F L Pulse Rate 85 106 H 108 H Respiratory Rate 20 20 Blood Pressure 149/85 H Pulse Oximetry 93 Oxygen Delivery Oxygen Flow Rate Fraction of Inspired Oxygen 05/01/25 20:00 05/01/25 20:00 05/01/25 20:40 Temperature 97.9 F Pulse Rate 98 99 Respiratory Rate 18 Blood Pressure 176/88 H Pulse Oximetry 93 Oxygen Delivery Room Air Oxygen Flow Rate Fraction of Inspired Oxygen 05/01/25 20:51 05/01/25 20:59 05/01/25 21:03 Temperature Pulse Rate 83 83 84 Respiratory Rate 20 20 Blood Pressure Pulse Oximetry 95 Oxygen Delivery Room Air Oxygen Flow Rate Fraction of Inspired Oxygen 21 05/01/25 22:05 05/02/25 00:00 05/02/25 00:00 Temperature 97.3 F L Pulse Rate 98 90 84 Respiratory Rate 18 Blood Pressure 171/81 H Pulse Oximetry 92 94 Oxygen Delivery Nasal Cannula Oxygen Flow Rate 1 Fraction of Inspired Oxygen 05/02/25 04:00 05/02/25 04:00 05/02/25 08:00 Temperature 96.5 F L 98.1 F Pulse Rate 84 84 100 Respiratory Rate 18 18 Blood Pressure 156/78 H 160/87 H Pulse Oximetry 95 94 Oxygen Delivery Oxygen Flow Rate Fraction of Inspired Oxygen 05/02/25 08:00 05/02/25 08:00 05/02/25 09:00 Temperature Pulse Rate 94 84 Respiratory Rate 20 Blood Pressure Pulse Oximetry Oxygen Delivery Room Air Oxygen Flow Rate Fraction of Inspired Oxygen 05/02/25 09:09 05/02/25 09:10 Temperature Pulse Rate 83 86 Respiratory Rate 20 Blood Pressure Pulse Oximetry 93 Oxygen Delivery Room Air Oxygen Flow Rate Fraction of Inspired Oxygen 21 Intake/Output Intake/Output: Intake & Output 04/29/25 04/30/25 05/01/25 05/02/25 23:59 23:59 23:59 23:59 Intake Total 150 1020 660 680 Balance 150 1020 660 680 Meds/Results Medications: Active Medications Generic Name Dose Route Start Last Admin Trade Name Freq PRN Reason Stop Dose Admin Albuterol/Ipratropium 3 ml 04/30/25 02:00 05/02/25 09:05 Ipratropium 0.5 Mg/Albuterol Sulfate 2.5 Mg Ampul.Neb 3 Ml INHALATION 3 ml Q6HRT FABIOLA Administration Amlodipine Besylate 5 mg 04/30/25 09:50 05/02/25 08:09 Amlodipine Besylate 5 Mg Tablet PO 5 mg DAILY FABIOLA Administration Enoxaparin Sodium 40 mg 04/29/25 21:00 05/02/25 08:07 Enoxaparin 40 Mg/0.4 Ml Syringe SUB-Q 40 mg Q12HR FABIOLA Administration Guaifenesin 1,200 mg 05/01/25 10:20 05/02/25 08:08 Guaifenesin 12 Hr 600 Mg Tabcr PO 1,200 mg Q12HR FABIOLA Administration Hydralazine HCl 10 mg 04/30/25 00:21 04/30/25 01:19 Hydralazine Hcl 20 Mg/Ml Vial IV PUSH 10 mg Q6H PRN Administration Blood Pressure - High Hydrochlorothiazide 12.5 mg 04/30/25 09:50 05/02/25 08:08 Hydrochlorothiazide 12.5 Mg Capsule PO 12.5 mg QAM FABIOLA Administration Doxycycline Hyclate 100 mg in 100 mls @ 100 mls/hr 04/30/25 06:00 05/02/25 08:39 Vibramycin 100 Mg/Ns 100 Ml IVPB Infused Q12H FABIOLA Infusion Ceftriaxone Sodium 2 gm in 100 mls @ 200 mls/hr 04/30/25 09:00 05/02/25 09:34 Rocephin 2 Gm/Ns 100 Ml IVPB Infused Q24H FABIOLA Infusion Losartan Potassium 100 mg 04/30/25 09:50 05/02/25 08:08 Losartan Potassium 50 Mg Tablet PO 100 mg DAILY FABIOLA Administration Melatonin 10 mg 04/30/25 00:20 05/01/25 20:59 Melatonin 5 Mg Tablet PO 10 mg HS FABIOLA Administration Prednisone 40 mg 05/01/25 08:00 05/02/25 08:09 Prednisone 20 Mg Tablet PO 40 mg DAILY@0800 FABIOLA Administration Radiology Results: ITS Impressions Chest CT 04/29/25 15:38 IMPRESSION: 1. UIP pattern chronic interstitial lung disease. 2. Enlargement of the central pulmonary arteries likely related to pulmonary arterial hypertension and which accounts for the increased prominence of the asya on the prior chest radiograph. 2. Mildly likely reactive mediastinal lymphadenopathy. Labs Labs: Laboratory Results - last 24 hr 04/30/25 04/30/25 05/02/25 05:25 09:27 06:03 WBC 11.6 H RBC 5.15 Hgb 16.1 Hct 50.0 MCV 97.1 MCH 31.3 MCHC 32.2 RDW 14.0 Plt Count 213 MPV 9.6 Immature Gran % (Auto) 0.4 Neut % (Auto) 70.7 Lymph % (Auto) 18.6 [place] % (Auto) 8.9 H Eos % (Auto) 1.1 Baso % (Auto) 0.3 Lymph # (Auto) 2.16 [place] # (Auto) 1.0 H Eos # (Auto) 0.1 Baso # (Auto) 0.0 Abs Immat Gran (auto) 0.05 H Absolute Neuts (auto) 8.2 H Absolute Nucleated RBC 0.000 Nucleated RBC % 0.0 Sodium 135 L Potassium 3.4 Chloride 102 Carbon Dioxide 25 Anion Gap 8 BUN 22 H Creatinine 0.91 Estim Creat Clear Calc 96 Estimated GFR > 60 Glucose 100 Calcium 9.0 Magnesium 2.2 Total Bilirubin 0.9 AST 25 ALT 16 Alkaline Phosphatase 106 Total Protein 7.4 Albumin 4.0 Anti-Cycl Citrul Peptide <16 MARK Scrn Qualitative Negative Quality VTE Prophylaxis VTE prophylaxis: pharmacologic ordered Hospitalist MIPS Advance Care Plan I have confirmed that the patient's Advanced Care Plan is present, code status is documented, or surrogate decision maker is listed in patient medical record.: Yes Medication Reconciliation I have utilized all available resources to obtain, update and review the patients current medications (includes all prescriptions, OTC, herbals, cannabis, and nutritional supplements).: Yes
[2025-05-02 14:59] LABS: Aldolase 4.3 U/L (< OR = 8.1)
--- NOTE | 2025-05-02 17:05 | P.DS_ITS ---
DS: Admitting Diagnosis Discharge Date 05/02/2025 Admitting Diagnosis Shortness of breath DS: Discharge Diagnosis Discharge Diagnosis (1) Hypertensive urgency: Code(s): I16.0 - Hypertensive urgency Status: Acute Assessment and Plan: BP on admission 216/118 now losartan 100mg, Amlodipine 5mg and HCTZ 12.5mg daily BP today 157/89 s/p Nitro paste may increase Amlodipine to 10mg tomorrow if no improvement tomorrow Plan is to discharge tomorrow (2) Hypoxic respiratory failure: Code(s): J96.91 - Respiratory failure, unspecified with hypoxia Status: Acute Assessment and Plan: Likely from [facility] CT chest reviewed autoimmune workup pending Continue Rocephin and Doxycycline Continue Prednisone -ApneaLink order placed to screen for HUM[place]ERTO/nocturnal oxygen needs -Pulmonary following For overnight oximetry (3) Interstitial lung disease: Code(s): J84.9 - Interstitial pulmonary disease, unspecified Status: Acute Assessment and Plan: -See above (4) Pulmonary hypertension: Code(s): I27.20 - Pulmonary hypertension, unspecified Status: Suspected Assessment and Plan: -Suspected based on imaging, see above (5) New onset of congestive heart failure: Code(s): I50.9 - Heart failure, unspecified Status: Suspected Assessment and Plan: -Suspected based on chronic worsening cough, CT imaging, Chronic HTN hx and worsening over months, see above Plan HIV positive result discussed with Pulmonology and it is likely false positive confirmation test pending DVT prophylaxis on Sq lovenox Possible dsicharge tomorrow DS: Summary Hospital Course Hospital Course: 70-year-old with a history of hypertension, arthritis of both feet status post operation now with no pain, tremor for 20 years, hypertension currently on no home medicines. The patient had no respiratory issues as a child, teenager or through his adult licea. Patient hike the [facility] [place] miles in his 20s. One year ago the patient could walk 5 miles and was performing an exercise routine. In October of 2025 he could walk 2 miles because he stops exercising. He did not stop exercising because of any respiratory issues. He had no respiratory limitations in his activities of daily living at that time. Patient smoked tobacco from age [age] at 1 and half packs per day for a total of 10 pack years. Patient was exposed to secondhand smoke from both of his parents. He was exposed to secondhand smoke from his 2nd last exposure was 1998. Patient smoked daily marijuana from [id number] at 5 inhalations a day. 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 He does have a dust collecting system for his table saw so that there is minimal inhalation of dust. He has not done this work in the last 6 months not because of any respiratory issues he just has lost interest. The patient denies sand blasting, welding, asbestos were, professional painting, steel miller distillery, coal mining, construction work, ceramics work. The patient does not have any exposure to live birds. He has Down feathered pillows. The patient has no reptiles, no hot tub, no history of chemotherapy or radiation therapy, no history of injectable medicines. To the patient's knowledge she has never had COVID and he has received a total of 4 vaccines. Patient denies any history of aspiration or coughing after he eats meals. The patient denies a family history of lung scarring. Current symptoms started in December of 2024 when he developed a dry cough. At the time the cough started he had no fever, chills, rigors, myalgias, headaches, sinus congestion. Cough came became progressively worse and in February of 2025 he developed worsening dyspnea on exertion. Over the last 2-3 weeks he has developed wheezing and rest shortness of breath. He has developed no rashes or lymphadenopathy. Patient denies any pedal edema, no change in his nocturia x1, no change in his 4 pillow orthopnea and denies getting short of breath when he lays flat, no PND. Symptoms progressed and patient presented to urgent care on 04/29/2025 and a chest x-ray showed pneumonia and he was referred to the emergency department. In the emergency department his blood pressure was 216/118, heart rate 98, respirations 24, room air saturations 88 and he was placed on 2 L nasal cannula saturations 97%. White blood cell count 10.0 with eosinophils 2.6%. Hemoglobin 16.8, platelets 210. Creatinine 0.86, serum bicarb 17. BNP 283. D-dimer was negative. Venous blood gas on 2 L 7.43/33/82. COVID, influenza, RSV RT PCR assay negative. Patient had a CT scan of the chest which demonstrated diffuse right lung reticulations with mild ground-glass infiltrates, peripheral honeycombing and lower lobe traction bronchiectasis. The left lung showed peripheral and basilar predominant reticulations with minimal ground-glass infiltrates and lower lobe traction bronchiectasis but no peripheral honeycombing. According to Dr. Munoz opinion this is a typical UIP CT pattern. the patient was treated with 20 of IV Lasix, ceftriaxone, doxycycline, IV hydralazine and nitropaste. The patient was given DuoNebs and Solu-Medrol 40 Q 8. I assumed care on the day of discharge 05/02/2025. Advised to follow up with PCP in regards to HIV positive. In regards to HIV patient denies any needle sticks or she actually intercourse for past 25 years. His HIV 1 and 2 ab/P24b antigen is positive and HIV 1 and 2 Ag/ab antibody is still pending. His viral load is pending Pulmonology agreed to discharge the patient with the following recommendation: Prednisone 40 mg p.o. q.day last dose 05/06/2025 Levofloxacin 750 mg p.o. q.day last dose 05/06/2025 Anoro Ellipta 62.5-25 at 1 puff q.day Rescue albuterol 2 puffs q.4 hours p.r.n. shortness of breath or wheezing Guaifenesin 1200 mg p.o. b.i.d. p.r.n. congestion Oxygen at rest and with activity per formal home O2 assessment which I have ordered Oxygen 2 L nasal cannula at night. On the day of discharge, the patient was seen and examined. Vital signs were stable. Physical exam were stable and labs were reviewed at length. Discharge instructions, medications, and follow-up appointments were discussed with the patient at length and all day questions were answered. ER warnings were given. Status at Discharge Cognitive/behavioral status at discharge: Stable Time Spent with Patient Time attestation: Total time spent providing and/or coordinating discharge services: 45 minute Exam Narrative: GENERAL: Appears stated age, tachypnea noted with mild respiratory distress HEAD: Normocephalic, atraumatic. ENT:? Mucous membranes moist. CHEST: Diminished lung sounds with mild end expiratory wheeze noted anteriorly. No obvious rales or rhonchi HEART: Regular rate and rhythm. ? Normal peripheral pulses. ABDOMEN: Soft, nontender, nondistended. EXTREMITIES: Normal range of motion. No peripheral edema. SKIN: Warm dry normal color NEURO: Alert and oriented x3. PSYCH: Normal mood and affect DS: Data Data Completed and Pending Labs on day of discharge: Labs from last 24 hours 05/02/25 04/30/25 06:03 09:27 WBC 11.6 H RBC 5.15 Hgb 16.1 Hct 50.0 MCV 97.1 MCH 31.3 MCHC 32.2 RDW 14.0 Plt Count 213 MPV 9.6 Immature Gran % (Auto) 0.4 Neut % (Auto) 70.7 Lymph % (Auto) 18.6 [place] % (Auto) 8.9 H Eos % (Auto) 1.1 Baso % (Auto) 0.3 Lymph # (Auto) 2.16 [place] # (Auto) 1.0 H Eos # (Auto) 0.1 Baso # (Auto) 0.0 Abs Immat Gran (auto) 0.05 H Absolute Neuts (auto) 8.2 H Absolute Nucleated RBC 0.000 Nucleated RBC % 0.0 Sodium 135 L Potassium 3.4 Chloride 102 Carbon Dioxide 25 Anion Gap 8 BUN 22 H Creatinine 0.91 Estim Creat Clear Calc 96 Estimated GFR > 60 Glucose 100 Calcium 9.0 Magnesium 2.2 Total Bilirubin 0.9 AST 25 ALT 16 Alkaline Phosphatase 106 Total Protein 7.4 Albumin 4.0 Aldolase 4.3 MARK Scrn Qualitative Negative Discharge Plan Discharge Attending physician on discharge: Jake Flores Consulting providers: Farooq Munoz Discharging Clinician: Jake Flores Anticipated Discharge Date/Time: 05/02/25 17:11 Patient Disposition: Home Activity: as tolerated Diet: as tolerated Discharge Instructions: Please follow-up with PCP in regards to positive HIV results. Patient need confirmatory testing for HIV. Ordered HIV 1 RNA test and please follow-up the results with PCP Patient viral load is pending. Check blood pressure 1 to 2 times a day. Record and bring into your doctor for review. Call your doctor if your blood pressure is greater than 180/110 or less than 90/45. Walk with cane or other assist device. Take precautions to avoid falls. Rise slowly from a lying or sitting position. Pause before standing or walking. Contact your doctor or call 911 and come to the Emergency Room if you have any type of trauma, lightheadedness with standing or other worrisome symptoms. Avoid NSAIDs (ibuprofen, naproxen, Aleve). Tylenol is safe to take. Follow-up with your primary care provider in 1-2 weeks. Please call for appointment. Thank you for using [facility] for your health care needs. Patient Instructions: Antibiotic Form Patient Language: [place] Stand Alone Forms: General Discharge Information Follow-up/Referrals: Jess Roque MD [Primary Care Provider] - Farooq Munoz MD [Physician] - Discharge Medications: New amlodipine [Norvasc] 5 mg Tablet 5 mg PO DAILY Qty: 30 0RF hydrochlorothiazide 12.5 mg Capsule 12.5 mg PO QAM Qty: 30 0RF prednisone 20 mg Tablet 40 mg PO DAILY@0800 Qty: 4 0RF guaifenesin [Mucus Relief ER] 600 mg Tablet Extended Release 12hr 1,200 mg PO Q12HR Qty: 30 0RF albuterol sulfate [Ventolin HFA] 90 mcg/actuation HFA aerosol inhaler 1 inh inhalation QID PRN (Reason: shortness of breath or wheezing) Qty: 8.5 0RF levofloxacin 750 mg tablet 750 mg PO DAILY Qty: 4 0RF Rx Instructions: Please complete the course on 05/06/2025 umeclidinium-vilanterol [Anoro Ellipta] 62.5-25 mcg/actuation blister with device 1 inh inhalation DAILY Qty: 60 0RF losartan [Cozaar] 50 mg Tablet 100 mg PO DAILY Qty: 30 0RF No Action No Home Medications Other Ambulatory Orders: HIV 1 RNA, Quantitative, PCR (Routine) Timeframe: 1 Week Location: Determined by Patient Ordered By: Jake Flores Date of admission: 04/29/25 16:09 Primary Care Provider: Jess Roque Admitting Provider: Kesha Monteiro Attending physician on admission: Kesha Monteiro Condition: Stable
[2025-05-02 21:29] LABS: Absolute CD4 Count 782 cells/uL (490-1740); Lymphocytes, Absolute 1943 cells/uL (850-3900); Percent CD4 Cells 40 % (30-61)
[2025-05-03 06:19] LABS: ANCA Screen NEGATIVE (NEGATIVE)
[2025-05-03 09:07] LABS: HIV 1 2 Ag Ab 4th Gen w Rflxs Non-Reactive
[2025-05-03 15:58] LABS: Pneumococcal Antigen Urine NOT DETECTED
[2025-05-03 18:02] LABS: Legionella pneumophila Ag Ur NOT DETECTED
[2025-05-03 18:13] LABS: Adenovirus DNA Not Detected (Not Detected); Chlamydophila pneumoniae Not Detected (Not Detected); Coronavirus 229E Not Detected (Not Detected); Coronavirus HKU1 Not Detected (Not Detected); Coronavirus NL63 Not Detected (Not Detected); Coronavirus OC43 Not Detected (Not Detected); Human Metapneumovirus Not Detected (Not Detected); Human Parainfluenza Virus 1 Not Detected (Not Detected); Human Parainfluenza Virus 2 Not Detected (Not Detected); Human Parainfluenza Virus 3 Not Detected (Not Detected); Human Parainfluenza Virus 4 Not Detected (Not Detected); Human RSV B Not Detected (Not Detected); Influenza A Not Detected (Not Detected); Influenza B Not Detected (Not Detected); Mycoplasma pneumoniae Not Detected (Not Detected); Rhinovirus/Enterovirus Not Detected (Not Detected)
--- NOTE | 2025-05-05 07:13 | P.CDI_ITS ---
CDI Query Clarification Request Please specify type of heart failure if known. * Systolic * Diastolic * Combined Systolic and Diastolic * Unknown The medical chart reflects the following: This is a 70 year old male patient who is admitted to the hospital with acute hypoxic respiratory failure and severely elevated blood pressure. Imaging completed in ER also concerning for Usual Interstitial Pneumonia (UIP), interstitial lung disease, possible CHF and likely pulmonary hypertension. Laboratory findings include a white blood cell count of 10, decreased carbon dioxide at 17 with venous pH mildly alkalotic at 7.434 with pCO2 low at 32.8. Patient is tachypneic due to respiratory findings primarily. No explanation for metabolic acidosis unless purely compensatory. ProBNP 283. Patient was started on Rocephin and doxycycline in ER which will be continued. He also got a one time dose of furosemide in ER. The patient reports a chronic cough began several months ago and has progressively worsened, particularly over the last two weeks. The increasing severity prompted the patient to seek medical attention, as symptoms were not resolving and it just got so bad I realized it was never going to go away. The cough is primarily felt in the upper part of the lungs and worsens with ex ertion. The patient denies chest pain or heart attack symptoms. Wheezing has been present for the past couple of weeks. (6) New onset of congestive heart failure: Code(s): I50.9 - Heart failure, unspecified Status: Suspected Assessment and Plan: -Suspected based on chronic worsening cough, CT imaging, Chronic HTN hx and worsening over months, see above ECHO: Summary 1. Definity contrast administered improved wall motion interpretation. 2. Left ventricular chamber dimension is normal. 3. Left ventricular systolic function is normal, estimated at 60-65. 4. There is mild concentric increased left ventricular wall thickness. 5. The left ventricular diastolic function is indeterminate. 6. Tissue doppler E/e' was not measured. 7. There is mild aortic valve sclerosis. 8. There is trace tricuspid valve regurgitation BNP 04/29: 283 04/30: 317 Lasix 20 mg IV x1 dose 04/29 <Dian Culp RN - Last Filed: 05/05/25 07:16> Clarified Diagnosis Clarified Diagnosis: Unknown <Jake Flores MD - Last Filed: 05/05/25 15:13>
[2025-05-05 18:48] LABS: Mycoplasma IgM Antibody Titer 294 U/mL
[2025-05-06 00:43] LABS: JO-1 AB <11 SI (<11); MI-2 Alpha Ab <11 SI (<11); MI-2 Beta Ab <11 SI (<11); NXP-2 AB <11 SI (<11); TIF1 Gamma Ab <11 SI (<11)
[2025-05-07 15:09] LABS: Aspergillus fumigatus NEGATIVE (NEGATIVE)
== END 2025-05-02 17:35 | disposition home or self-care (01) | DRG 193 ==
LOC: ANHED 16:04 → ANH3MEDSUR 17:02
PROVIDERS: Internal Medicine Pulmonary Disease; Nurse Practitioner; Admitting Provider Internal Medicine; Emergency Provider Emergency Medicine; PCP Family Medicine; Visit Provider General Practice
DX: J18.9 Pneumonia, unspecified organism (principal); J96.01 Acute respiratory failure with hypoxia; J84.89 Other specified interstitial pulmonary diseases; I27.20 Pulmonary hypertension, unspecified; I16.0 Hypertensive urgency; I11.0 Hypertensive heart disease with heart failure; I50.9 Heart failure, unspecified; Z20.822 Contact with and (suspected) exposure to COVID-19; Z87.891 Personal history of nicotine dependence
CPT/HCPCS: 36415; 71260; 80053; 81003; 82085; 82103; 82104; 82550; 82803; 83690; 83735; 83880; 84100; 84145; 84182; 84484; 85025; 85380; 85610; 85730; 86036; 86038; 86200; 86225; 86235; 86361; 86364; 86430; 86703; 86738; 87389; 87449; 87633; 87637; 87899; 93005; 94640; 94762; 96374; 99285; A9270; C8929; G0432; J0360; J0696; J1650; J1938; J2919; J7512; Q9957; Q9967

== ENCOUNTER 2025-06-06 09:38 | Outpatient (CLI) | payer MEDICARE, SELFPAY ==
--- OUTSIDE RECORDS SUMMARY | 2025-06-06 09:42 | XMS_ITS | Referral Summary ---
Author Organization [facility] [place] [address] Address [address] [place] [address] Care Team Providers Care Outside Machinist Apprentice Name Role Phone Edgar Ward MD Primary Care Provider [phone] Allergies No known active allergies Social History [...] Plan of Treatment Not on file Insurance [employer] [facility] Care Teams Outside Machinist Apprentice Relationship Specialty Start Date End Date Edgar Ward MD [address] [place] [address] PCP - General Family Medicine 05/03/18
--- OUTSIDE RECORDS SUMMARY | 2025-06-06 09:42 | XMS_ITS | Continuity of Care Document ---
Author Organization [facility] Address [address] [facility] [place] [address] Phone Care Team Providers Care Pest Control Operator Name Role Phone Nikolai Nolasco MD Unavailable Unavailable Allergies, Adverse Reactions, Alerts Substance Reaction Status Criticality No Known Allergies Active No Inform ation Medications Medication Instructions Dosage Effective Dates (start - stop) Status Comments Norvasc 5 mg tablet take 1 tablet by oral route every day 5 MG - Active hydrochlorothiazide 12.5 mg tablet take 1 tablet by oral route every day 12.5 MG - Active losartan 50 mg tablet take 1 tablet by oral route every day 50 MG - Active Procedures Procedure Date OFFICE/OUTPATIENT VISIT, [facility] OFFICE/OUTPATIENT VISIT, [facility] Advance Directives Directive Yes / No Effective Date File Name No Information Encounters Encounter Description Practice Location Reason(s) For Visit Diagnoses Date Provider Providers Copied on Encounter OFFICE/OUTPA TIENT VISIT, [facility], [address] [place], [place], [id number], tel:[phone] [facility] HTN (chief complaint) UIP1 (chief complaint) dyspnea1 (chief complaint) HCT (chief complaint) Essential (primary) hypertensionInterst itial lung diseasePulmonary hypertension, unspecifiedSecondar y polycythemia [address] Gaurav Men[address]. [address] [facility] [address] [place], [place], [id number] , [place]. tel:[phone] OFFICE/OUTPA TIENT VISIT, [facility], [address] [place], [id number], tel:[phone] [facility] HTN (chief complaint) UIP (chief complaint) HIV (chief complaint) Essential (primary) hypertensionInterst itial lung diseasePulmonary hypertension, unspecifiedAsymptom atic HIV infection status 5 Gaurav [address]. [address] [place], [place], [id number] , [place]. tel: [phone] Family History Family Member Type Diagnosis Age At Onset Mother Problem of old age 80s Sister Problem Alive and well Father Problem of prostate [place] 73 Payers Payer name Insurance type Covered green party ID Authorcindia jaime(s) [employer] Medicare CI [id number] Social History Type Description Quantity Date Captured Comments Alcohol Use Details beer & liquor 2 drinks daily Caffeine Use Details Unknown Tobacco Use Status Ex-cigarette smoker 025 Smoking Status Former smoker Sex Male Vital Signs Date / Time: Height Weight BMI Pulse Rate Blood Pressure Temperature Respiratory Rate Body Surface Area Head Circumference BMI percentile Pulse Ox Inhaled Ox 11:46 AM 75.00 in 296.60 lbs 37.0 7 kg/m eter (2) 106 /min 160/70 mm[Hg] 97.3 F 16 /min Chief Complaint And Reason For Visit From encounter dated '06/05/2025 11:43'. HTN (chief complaint). 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 UIP1 (chief complaint). Description: Pt has UIP with interstitial lung disease and he is seeing pulmonary and he will have PFT done soon and he has sleep study scheduled in 6 months dyspnea1 (chief complaint). Description: pt feels frequent sob Pt does walk more than 1 mile per day and he does not feel sob, but bending over causes more sob Pt denies any chest pain HCT (chief complaint). Description: Pt has mild high HCT pt does feel fatigue and he does snore at night. Plan Of Treatment Date Type Action Status Referral Ordered: SLEEP STUDY, ATTENDED ordered Referral Referred To: Arsh Lord [address] [place], [address] [phone] Ordered: Referrals: Arsh Lord ordered History Of Present Illness Encounter Date Complaint History Of Prese nt Illness UIP1 Pt has UIP with interstitial lung disease and he is seeing pulmonary and he will have PFT done soon and he has sleep study scheduled in 6 months HCT Pt has mild high HCT pt does feel fatigue and he does snore at night. dyspnea1 pt feels frequen t sob Pt does walk more than 1 mile per day and he does not feel sob, but bending over causes more sob Pt denies any chest pain HTN Pt has HTN Pt ta kes losartan and hctz and he is out of norvasc. 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 HTN Pt has HTN pt re cently went to ER with hypertensive urgency. he is on norvasc, hctz and also losartan and his bp is ok. Pt denies any chest pain UIP Pt was admitted to hospital recently due to UIP. pt was treated with IV abx and also steroid and he denies any dyspnea anymore. he is back to his baseline .Pt also has pulmonary HTN pt had sleep study done in hospital and he does require oxygen at night but no sleep apnea per patient. HIV AIDS defining cr iteria consists of. Comments: Pt tested positive for HIV while in hospital and he supposes to recheck HIV next week. he denies any IV drug use and he has not had sex for over 10 years. Instructions Date Instruction Additional Infor mation No Information Assessments Type Assessment Date assessment Essential (primary) hypertension assessment Interstitial lung disease assessment Pulmonary hypertension, unspecif ied assessment Secondary polycythemia Mental Status Date Cognitive Assessment Orientation - [place] ed to time, place, person, situation.
--- OUTSIDE RECORDS SUMMARY | 2025-06-06 09:42 | XMS_ITS | Clinical Summary ---
Author Organization [facility] [place] [address] Address [address] [place] [address] Care Team Providers Care Dynamotor Repairer Name Role Phone Edgar Ward MD Primary Care Provider [phone] Allergies No known active allergies Social History [...] Plan of Treatment Not on file Insurance [employer] [facility] Care Teams Dynamotor Repairer Relationship Specialty Start Date End Date Edgar Ward MD [address] [place] [address] PCP - General Family Medicine 05/03/18
--- NOTE | 2025-06-06 12:31 | WPDPFTINT ---
PFT Procedure Performed PFT Procedure Performed Spirometry with Pre/Post Bronchodilator Plethysmography (Lung Vol) Diffusing Cap (DLCO) Flow Vol Loop PFT Interpretation This is a pulmonary function test with pre and post-bronchodilator spirometry, plethysmography and diffusing capacity. The test was performed and results interpreted in accordance with the 2019 and 2005 ATS/ERS Task Force guidelines respectively using the Global Lung Function Initiative-2012 reference equations. Patient demonstrated good effort and cooperation. Reproducibility criteria were met. The quality of the pre bronchodilator spirometry maneuver was Grade A and post bronchodilator spirometry maneuver was Grade A. Findings: Spirometry: The contour the expiratory flow tracing resembles a witch's hat. The contour the inspiratory flow tracing is normal. The pre bronchodilator FVC is 2.63 L, 65% predicted. The pre bronchodilator FEV1 is 2.12 L, 69% predicted. The pre bronchodilator FEV1: FVC ratio is 81%. The post bronchodilator FVC is 2.77 L, representing a 5% increase. The post bronchodilator FEV1 is 2.31 L, representing a 9% increase. The post bronchodilator FEV1: FVC ratio is 84%. Plethysmography: The total lung capacity is 4.54 L, 67% predicted. The functional residual capacity is 2.34 L, 60% predicted. The residual volume is 1.87 L, 67% predicted. Diffusing capacity: The diffusing capacity unadjusted for hemoglobin and carboxyhemoglobin is 12.5, 50% predicted. The diffusing capacity adjusted for alveolar volume is 3.35, 89% predicted. Impression: There is a moderate restrictive ventilatory abnormality. The spirometry is normal without evidence of an obstructive abnormality. There is no significant improvement after inhaling a single dose of albuterol. The diffusing capacity unadjusted for hemoglobin and carboxyhemoglobin is moderately decreased and normalizes when adjusted for alveolar volume. There are no prior studies for comparison
== END 2025-06-06 09:39 | disposition home or self-care (01) ==
LOC: ANHPFT 09:40
PROVIDERS: PCP Emergency Medicine; Visit Provider Internal Medicine Pulmonary Disease
DX: R94.2 Abnormal results of pulmonary function studies (principal); J84.9 Interstitial pulmonary disease, unspecified
CPT/HCPCS: 94060; 94726; 94729

== ENCOUNTER 2025-07-25 07:28 | Outpatient (CLI) | payer MEDICARE, SELFPAY ==
--- OUTSIDE RECORDS SUMMARY | 2025-06-24 07:23 | XMS_ITS | Continuity of Care Document ---
Author Organization [facility] Address [address] [facility] [place] [address] Phone Care Team Providers Care Calculator Operator Name Role Phone Nikolai Nolasco MD Unavailable Unavailable Allergies, Adverse Reactions, Alerts Substance Reaction Status Criticality No Known Allergies Active No Inform ation Medications Medication Instructions Dosage Effective Dates (start - stop) Status Comments hydrochlorothiazide 12.5 mg tablet take 1 tablet by oral route every day 12.5 MG - Active losartan 50 mg tablet take 1 tablet by oral route every day 50 MG - Active Norvasc 5 mg tablet take 1 tablet by oral route every day 5 MG - Active Procedures Procedure Date PREV VISIT, EST, 65 & OVER OFFICE/OUTPATIENT VISIT, EST OFFICE/OUTPATIENT VISIT, [facility] Advance Directives Directive Yes / No Effective Date File Name No Information Encounters Encounter Description Practice Location Reason(s) For Visit Diagnoses Date Provider Providers Copied on Encounter PREV VISIT, EST, 65 & OVER [facility], [address] [place], [place], [id number], tel:[phone] [facility] HTN (chief complaint) sleep apnea1 (chief complaint) sob (chief complaint) Encounter for general adult medical examination without abnormal findings 5 Gaurav Menchaca. [address] [facility] [place], [id number] , [place]. tel:[phone] OFFICE/OUTPA TIENT VISIT, EST [facility], [address] [place], [place], [id number], tel:[phone] [facility] HTN (chief complaint) UIP1 (chief complaint) dyspnea1 (chief complaint) HCT (chief complaint) Essential (primary) hypertensionInterst itial lung diseasePulmonary hypertension, unspecifiedSecondar y polycythemia 5 Gaurav Menchaca. [address], [place], [place], [id number] , [place]. [phone] OFFICE/OUTPA TIENT VISIT, [facility], [address] [place], [place], [id number], [place] tel:[phone] [facility] HTN (chief complaint) UIP (chief complaint) HIV (chief complaint) Essential (primary) hypertensionInterst itial lung diseasePulmonary hypertension, unspecifiedAsymptom atic HIV infection status 5 Gaurav Nikolai. [address] [facility] [address], [place], [place], [id number] , [place]. tel:[phone] Family History Family Member Type Diagnosis Age At Onset Mother Problem of old age 80s Sister Problem Alive and well Father Problem of prostate CA 73 Payers Payer name Insurance type Covered democrat ID Authoriza jaime(s) [employer] Medicare CI [id number] Social History Type Description Quantity Date Captured Comments Alcohol Use Details beer & liquor 2 drinks daily Caffeine Use Details Unknown Tobacco Use Status Ex-cigarette smoker 025 Smoking Status Former smoker Sex Male Vital Signs Date / Time: Height Weight BMI Pulse Rate Blood Pressure Temperature Respiratory Rate Body Surface Area Head Circumference BMI percentile Pulse Ox Inhaled Ox 12:28 PM 75.00 in 298.80 lbs 37.3 5 kg/m eter (2) 90 /min 150/88 mm[Hg] 97.7 F 16 /min Chief Complaint And Reason For Visit From encounter dated '06/24/2025 12:23'. HTN (chief complaint). Description: Pt has HTN Pt is on norvasc, losartan and also hctz and his bp is borderline high in office but his bp is around 127/67 at home Pt denies any chest pain. sleep apnea1 (chief complaint). Description: Pt has mild sleep apnea with snoring and fatigue. sob (chief complaint). Description: Pt has exertional sob Pt had PFT done which showed restrictive lung disease without obstruction Pt is off inhalers Pt also has interstitial lung disease on chest CT. His pulmonary referred him to Interstitial lung disease specialist at [facility]. he denies any chest pain Pt has mannie with cardiology tomorrow. Plan Of Treatment Date Type Action Status Referral Ordered: SLEEP STUDY, ATTENDED ordered Referral Referred To: Arsh Lord [address] [place] [address], [phone] Ordered: Referrals: Arsh Lord ordered Appointment Jayson Jennings BOOKED History Of Present Illness Encounter Date Complaint History Of Prese nt Illness HTN Pt has HTN Pt is on norvasc, losartan and also hctz and his bp is borderline high in office but his bp is around 127/67 at home Pt denies any chest pain. sleep apnea1 Pt has mild slee p apnea with snoring and fatigue. sob Pt has exertiona l sob Pt had PFT done which showed restrictive lung disease without obstruction Pt is off inhalers Pt also has interstitial lung disease on chest CT. His pulmonary referred him to Interstitial lung disease specialist at [facility]. he denies any chest pain Pt has mannie with cardiology tomorrow. HTN Pt has HTN Pt ta kes losartan and hctz and he is out of norvasc. he did not picker norvasc last month from me since he still has some norvasc from previous MD and he is out for several days and he did not ask pharmacy to dispense. dyspnea1 pt feels frequen t sob Pt does walk more than 1 mile per day and he does not feel sob, but bending over causes more sob Pt denies any chest pain HCT Pt has mild high HCT pt does feel fatigue and he does snore at night. UIP1 Pt has UIP with interstitial lung disease and he is seeing pulmonary and he will have PFT done soon and he has sleep study scheduled in 6 months HTN Pt has HTN pt re cently [...] No Information Assessments Type Assessment Date assessment Encounter for nawaf l adult medical examination without abnormal findings Mental Status Date Cognitive Assessment Orientation - [place] ed to time, place, person, situation.
--- NOTE | ~2025-07-25 | NM_ITS ---
EXAMINATION: NM lb stress w perfusion DATE: 07/25/2025 11:18 INDICATION: Dyspnea TECHNIQUE: Rest images were obtained following intravenous administration of 10.9 mCi Tc99m tetrofosmin (Myoview). The patient was infused intravenously with Lexiscan (Regadenoson). Then, 32 mCi Tc99m tetrofosmin (Myoview) was administered intravenously, and stress images were obtained. Data was recons tructed into short axis and horizontal and vertical long axis SPECT images. Gated SPECT images were also obtained. COMPARISON: None. FINDINGS: There is no definite reversible or fixed perfusion abnormality to suggest ischemia or infarction. There is normal left ventricular chamber size, wall motion and ejection fraction. Left ventricular ejection fraction measures 61%. IMPRESSION: 1. Normal myocardial perfusion during stress. 2. Left ventricular ejection fraction measuring 61%. Reviewed, dictated and finalized at location A.
--- OUTSIDE RECORDS SUMMARY | 2025-07-25 07:32 | XMS_ITS | Clinical Summary ---
Author Organization [facility] [place] [address] Address [address] [place] [address] Care Team Providers Care Body Design Checker Name Role Phone Edgar Ward MD Primary Care Provider [phone] Allergies No known active allergies Encounters Date Type Department Care Team Description 07/14/2025 Orders Only [facility] Scheduling [address] [place] [address] Radha Longoria MD ILD (interstitial lung disease) (HCC) (Primary Dx) from Last 3 Months Social History Tobacco Use Types Packs/Day Years [...] 05/17/2018 11:33 AM CDT Plan of Treatment Health Maintenance Due Date Last Done Comments Colon Cancer Screening-Colonoscopy 1955 Depression Screening 1955 Fall Risk Assessment 1955 Hepatitis C Screening 1955 DTaP/Tdap/Td Vaccine (1 - Tdap) 1965 Hepatitis B Screening 1972 Pneumococcal vaccine 65+ (1 of 1 - PCV) 2004 Zoster Vaccine (1 of 2) 2004 Abdominal Aortic Aneurysm (AAA) Screen 2019 Well Visit 65+ 2019 Influenza Vaccine (#1) 2025 Insurance [facility] AETNA MEDICARE Care Teams Body Design Checker Relationship Specialty Start Date End Date Edgar Ward MD [address] [place] [address] PCP - General Family Medicine 05/03/18
--- NOTE | 2025-07-25 08:03 | EST_ITS ---
Patient Info Name: Jayson Jennings Age: 70 years : 1955 Gender: Male Ht: 75 in Wt: 298 lbs BSA: 2.72 m2 HR: 75 bpm BP: 159 / 85 mmHg Exam Date: 07/25/2025 8:03 AM Patient Status: O Admit Date: 07/25/2025 Exam Type: CA stress lb w NM A regadenoson stress test was performed. Staff Referring Physician: Arsh Lord DO Attending Provider: Arsh Lord DO Exercise Technologist: An Pozo Exercise Physician: Arsh Lord DO Summary 1. 1. Negative lexiscan stress test for ischemic ST changes by ECG criteria. 2. 2. Baseline hypertension. 3. 3. Nuclear scan to follow and will be reported separately. Please correlate with it. 4. 4. Patient informed of the above results. Protocol: Lexiscan Stress ECG Details Stage: REST Duration (min): 2 min : 43 sec HR (bpm): 81 SBP (mmHg): 159 DBP (mmHg): 85 Stage: REST Duration (min): 7 min : 45 sec HR (bpm): 83 SBP (mmHg): 159 DBP (mmHg): 85 Stage: STAGE 1 Duration (min): 0 min : 59 sec HR (bpm): 97 SBP (mmHg): 131 DBP (mmHg): 82 Stage: RECOVERY Duration (min): 1 min : 0 sec HR (bpm): 91 SBP (mmHg): 131 DBP (mmHg): 82 Stage: RECOVERY Duration (min): 2 min : 0 sec HR (bpm): 90 SBP (mmHg): 131 DBP (mmHg): 82 Stage: RECOVERY Duration (min): 3 min : 0 sec HR (bpm): 89 SBP (mmHg): 140 DBP (mmHg): 80 Stage: RECOVERY Duration (min): 3 min : 32 sec HR (bpm): 87 SBP (mmHg): 140 DBP (mmHg): 80 Rest HR: 83 bpm Peak HR: 98 bpm Rest Sys BP: 159 mmHg Peak Sys BP: 140 mmHg Max Pred HR: 149 bpm % Max Pred HR: 66 % Target HR: 127 bpm Max RPP: 13,720 bpm*mmHg Termination Reason: Completed protocol Cardiac Symptoms: Shortness of breath Total Time: 1 min : 0 sec Rest Lemon BP: 85 mmHg Peak Lemon BP: 80 mmHg Total Dose: 0.4 mg Resting ECG Sinus rhythm. Stress ECG No ST changes. Arrhythmias None. Report Signatures
== END 2025-07-25 07:29 | disposition home or self-care (01) ==
PROVIDERS: PCP Emergency Medicine; Visit Provider Internal Medicine Cardiovascular Disease
DX: R06.09 Other forms of dyspnea (principal)
CPT/HCPCS: 78452; 93017; A9502; J2785